=== PATIENT | male | born 1935 | race African-American/Black ===

== ENCOUNTER 2019-05-17 08:16 | Inpatient (IN) | payer MEDICARE, OTHER ==
--- NOTE | 2019-05-17 08:17 | ED ---
Complex/Multi-Sys Presentation - HPI Summary HPI Summary: 83-year-old male with a history of hypertension, diabetes, coronary artery disease is presenting with 1 day of fever, sore throat and productive cough. Patient is a resident at [facility], he has been self isolating, however his has been going to the lobby and has had interaction with other people. Patient reports a sore throat, phlegm like productive cough that began yesterday. No shortness of breath. Does report fatigue. Febrile to 103 with EMS. Got his flu shot this year. Denies abdominal pain, headaches, nausea, or vomiting. Medication list reviewed. Allergy list reviewed. - History Of Current Complaint Hx Obtained From: Patient Onset/Duration: Lasting Hours Timing: Constant Associated Signs And Symptoms: Positive: Other - Fatigue. Negative: Headache, SOB, Nausea, Vomiting, Abdominal Pain - Allergies/Home Medications Allergies/Adverse Reactions: Allergies Allergy/AdvReac Type Severity Reaction Status Date / Time CADEN Inhibitors Allergy Swelling Verified 05/17/19 08:38 Of Face,Lips,& Throat Sulfa (Sulfonamide Allergy Itching Verified 05/17/19 08:38 Antibiotics) Home Medications: Home Medications ARIPiprazole TAB* [Abilify TAB*] 2.5 mg PO DAILY 05/17/19 [History Confirmed ] Atorvastatin* [Lipitor*] 20 mg PO DAILY 05/17/19 [History Confirmed 05/17/19] Bisoprolol TAB* [Zebeta TAB*] 5 mg PO DAILY 05/17/19 [History Confirmed 05/17/19 ] Cetirizine* [ZyrTEC 10 MG TAB*] 10 mg PO DAILY 05/17/19 [History Confirmed 05/16] Furosemide TAB* [Lasix TAB*] 20 mg PO DAILY 05/17/19 [History Confirmed 05/17/19 ] Insulin Glargine,Hum.rec.anlog [Toujeo Max Solostar 300 units/ml 2 ml x 3 Pens] 20 units SUBCUT DAILY 05/17/19 [History Confirmed 05/17/19] Linaclotide [Linzess] 72 mcg PO DAILY 05/17/19 [History Confirmed 05/17/19] Losartan TAB* [Cozaar TAB*] 50 mg PO DAILY 05/17/19 [History Confirmed 05/17/19] Meloxicam(NF) [Mobic(NF)] 15 mg PO DAILY 05/17/19 [History Confirmed 05/17/19] Modafinil TAB* [Provigil TAB*] 50 mg PO DAILY 05/17/19 [History Confirmed ] Omeprazole CAP (NF) [Prilosec CAP* 20 MG] 20 mg PO DAILY 05/17/19 [History Confirmed 05/17/19] Selegiline 6 MG PATCH (NF) [Emsam PATCH (NF)] 1 patch TRANSDERM DAILY 05/17/19 [ History Confirmed 05/17/19] Spironolactone TAB* [Aldactone TAB*] 25 mg PO DAILY 05/17/19 [History Confirmed 05/17/19] hydrALAZINE TAB* [Apresoline TAB*] 10 mg PO TID 05/17/19 [History Confirmed 07/30] metFORMIN* [Glucophage 500 MG TAB *] 500 mg PO BID 05/17/19 [History Confirmed 05/17/19] PMH/Surg Hx/FS Hx/Imm Hx Endocrine/Hematology History: Reports: Hx Diabetes Cardiovascular History: Reports: Hx Hypertension, Other Cardiovascular Problems/ Disorders - "Heart problems" - Surgical History Surgical History: None - Family History Known Family History: Positive: Hypertension, Diabetes - Social History Lives: Assisted Living - [facility] Alcohol Use: None Hx Substance Use: No Substance Use Type: Reports: None Hx Tobacco Use: No Smoking Status (MU): Never Smoked Tobacco Review of Systems Positive: Fever, Fatigue Positive: Sore Throat Positive: Cough. Negative: Shortness Of Breath Negative: Abdominal Pain, Vomiting, Nausea Negative: Headache All Other Systems Reviewed And Are Negative: Yes Physical Exam - Summary Physical Exam Summary: Constitutional: Well-developed, Well-nourished, Alert. (-) Distressed Skin: Warm, Dry HENT: Normocephalic; Atraumatic Eyes: Conjunctiva normal Neck: Musculoskeletal ROM normal neck. (-) JVD, (-) Stridor, (-) Nuchal rigidity Cardio: Rhythm regular, tachycardic, Heart sounds normal; Intact distal pulses; Radial pulses are 2+ and symmetric. (-) Murmur Pulmonary/Chest wall: Effort normal. (-) Respiratory distress, (-) Wheezes, (-) Rales Abd: Soft, (-) tenderness, (-) Distension, (-) Guarding, (-) Rebound Musculoskeletal: (-) Edema Lymph: (-) Cervical adenopathy Neuro: Alert, Oriented x3 Psych: Mood and affect Normal Triage Information Reviewed: Yes Vital Signs Reviewed: Yes Procedures - Sedation Patient Received Moderate/Deep Sedation with Procedure: No Diagnostics - Laboratory Result Diagrams: 05/17/19 09:05 05/17/19 09:05 Lab Statement: Any lab studies that have been ordered have been reviewed, and results considered in the medical decision making process. - Radiology Chest x-ray Radiology Interpretation Completed By: Radiologist Summary of Radiographic Findings: Elevation of the right hemidiaphragm without radiographic evidence of acute cardiopulmonary disease. ED physician has reviewed this report. Complex Multi-Symp Course/Dx Course Of Treatment: 83 y/o male p/w fever, fatigue and productive cough x1 day. - VS SpO2 88-92% on RA, placed on 2 L O2. Febrile. given tylenol. Labs w leukocytosis. Flu negative. COVID pending. CXR w/o obvious PNA. Given age, O2 requirement, will admit to medicine. Given azithromycin and ceftriaxone - Diagnoses Provider Diagnoses: Fever, Hypoxia, Pneumonia - Physician Notifications Discussed Care Of Patient With: Sugey Subramanian Time Discussed With Above Provider: 09:54 Instructed by Provider To: Other - Discussed with Dr. Subramanian who accepts the patient for admission. Discharge ED - Sign-Out/Discharge Documenting (check all that apply): Patient Departure - Discharge Plan Condition: Stable Disposition: ADMITTED TO [facility] Referrals: Caitlyn Lance MD [Primary Care Provider] - - Billing Disposition and Condition Condition: STABLE Disposition: Admitted to [facility] - Attestation Statements Document Initiated by Scribe: Yes Documenting Scribe: Pia Malik Provider For Whom Gwendolyn is Documenting (Include Credential): Kyara Yoo MD Scribe Attestation: Pia Winston, scribed for Kyara Yoo MD on 05/17/19 at 1000. Scribe Documentation Reviewed: Yes Provider Attestation: The documentation as recorded by the Pia starks accurately reflects the service I personally performed and the decisions made by , Kyara Yoo MD Status of Scribe Document: Viewed
[2019-05-17] MEDS ORDERED: NS 0.9% 1000 ML** 1,000 ML IV ONE (08:47)
[2019-05-17] MEDS ORDERED: Acetaminophen TAB* 325 MG PO ONE (08:47)
[2019-05-17 09:17] LABS: Influenza A Molecular Negative (Negative); Influenza B Molecular Negative (Negative)
[2019-05-17 09:21] LABS: ABS Basophils 0.1 10^3/ul (0-0.2); ABS Lymphocytes 0.8 10^3/ul (1.0-4.8); ABS Monocytes 1.5 10^3/ul (0-0.8); ABS Neutrophils 8.9 10^3/ul (1.5-7.7); Eosinophil % 0.1 %; Hematocrit 35 % (42-52); Hemoglobin 11.8 g/dL (14.0-18.0); Lymphocyte % 7.4 %; Mean Corpuscular HGB Conc 33 g/dL (31-36); Mean Corpuscular Hemoglobin 33 pg (27-31); Mean Corpuscular Volume 98 fL (80-94); Mean Platelet Volume 9.6 fL (7.4-10.4); Platelet Count 138 10^3/uL (150-450); Red Blood Count 3.63 10^6 /uL (4.18-5.48); Red Cell Distribution Width 14 % (10-15); White Blood Count 11.3 10^3/uL (3.5-10.8)
[2019-05-17 09:38] LABS: Activated Partial Thrombo Time 27.1 seconds (26.0-38.0); Albumin 3.6 g/dL (3.2-5.2); Albumin/Globulin Ratio 0.9 (1-3); BUN/Creatinine Ratio 12.6 (8-20); Calcium 9.5 mg/dL (8.6-10.3); EGFR Non-African American 39.7 (>60); Globulin 3.8 g/dL (2-4); INR 1.19 (0.82-1.09); Potassium 3.9 mmol/L (3.5-5.0); Total Bilirubin 0.6 mg/dL (0.2-1.0); Total Protein 7.4 g/dL (6.4-8.9)
[2019-05-17 09:42] LABS: Troponin I 0.04 ng/mL (<0.03)
[2019-05-17] MEDS ORDERED: Azithromycin 500 mg/250 ml NS 500 MG/250 ML BAG IVPB ONE (09:51)
[2019-05-17] MEDS ORDERED: cefTRIAXone(*) 1 GM in NS 0.9% 50 ML* 50 ML IVPB SCH ×2 (10:00→11:05)
[2019-05-17] MEDS ORDERED: cefTRIAXone(*) 1 GM ADVAN/BAG ONE (10:11)
[2019-05-17] MEDS ORDERED: Al Hydrox/Mg Hydrox/Simet LIQ* 30 ML UDC PO PRN (10:58)
[2019-05-17] MEDS ORDERED: Ondansetron INJ* 2 MG/ML VIAL IV PRN (10:58)
[2019-05-17] MEDS ORDERED: Dextrose 50% Syringe 50 ML* 25 GM/50 ML SYRINGE IV PUSH PRN (11:02)
[2019-05-17] MEDS ORDERED: Oral Rinse (Biotene)(NF) 237 ML or 473 ML ORAL RINSE BTL MT PRN (11:03)
[2019-05-17] MEDS ORDERED: Albuterol HFA INHALER* 8 gm MDI INH PRN (11:46)
[2019-05-17 12:06] LABS: Rapid Strep Molecular Negative (Negative)
--- NOTE | 2019-05-17 13:53 | HP ---
CC: Dr. Lance* HISTORY AND PHYSICAL: DATE OF ADMISSION: 05/17/19 ATTENDING PHYSICIAN WHILE IN THE HOSPITAL: Dr. Sugey Subramanian* (dictated by NOA Peralta). PRIMARY CARE PROVIDER: Dr. Lance. CHIEF COMPLAINT: Increased generalized weakness and productive cough. HISTORY OF PRESENT ILLNESS: Derek Yanez is an 83-year-old black male with past medical history significant for congestive heart failure, GERD, depression , hypertension, KAREEM, diabetes mellitus type 2, chronic fatigue, prostate cancer , CKD, who presents to the emergency department today due to progressive worsening weakness and productive cough. The patient is very delayed in answering my questions today and I did obtain additional history from his daughter Karie Yanez. Karie tells me that his delay in answering questions is baseline for him. The patient tells me he has chronic cough but starting yesterday it became worse and is productive. He has chronic fatigue but his daughter tells me that yesterday he was very tired and was having generalized weakness that his needed help from one of the aides at [facility] to get him out of bed, which is not normal for him. Additionally, the patient has been feeling intermittently febrile. The patient tells me he has been having a cough but it is chronic; however, it is worse from his baseline and he is producing phlegm with the cough. He is having difficulty bring it up at times, he tells me. He has been feeling short of breath exerting himself, but he is unsure if this is chronic or not. He is unable to specific that to me. He denies abdominal pain, nausea, vomiting, diarrhea, chest pain, rhinorrhea. He has chronic nasal congestion which is unchanged. He started having a sore throat yesterday as well. The patient has newly transplanted here with his from [place] because his daughter lives in this area. They have been living in [place]. He has been isolating himself in his room ; however, his has been going in and out of the room to lobby of the building. He recently established care with Dr. Lance's office within the last few weeks since arriving here, and I do have a copy of the initial H and P from that visit which I gather much of my past medical history from. PAST MEDICAL HISTORY: 1. Congestive heart failure, no echocardiogram on record yet. 2. GERD. 3. Depression. 4. Hypertension. 5. KAREEM. 6. Diabetes mellitus type 2. 7. Chronic proximal muscle weakness. 8. Chronic fatigue. 9. Prostate cancer, status post radiation therapy. 10. CKD. PAST SURGICAL HISTORY: 1. Left TKA. 2. Spinal surgery due to herniated disk. HOME MEDICATIONS: 1. Abilify 2.5 mg p.o. daily. 2. Lipitor 20 mg p.o. daily. 3. Bisoprolol 5 mg p.o. daily. 4. Cetirizine 10 mg p.o. daily. 5. Lasix 20 mg p.o. daily. 6. Hydralazine 10 mg p.o. t.i.d. 7. Insulin glargine 20 units subcu daily. 8. Linzess 72 mcg p.o. daily. 9. Losartan 50 mg p.o. daily. 10. Meloxicam 15 mg p.o. daily. 11. Metformin 500 mg p.o. b.i.d. 12. Modafinil 50 mg p.o. daily. 13. Omeprazole 20 mg p.o. daily. 14. Selegiline 6 mg patch 1 patch transdermally daily. 15. Spironolactone 25 mg p.o. daily. ALLERGIES: Swelling of face, lips, and throat to CADEN INHIBITORS; itching to SULFA DRUGS. FAMILY HISTORY: Father of prostate cancer at age 95. Mother in her 80s of unknown causes. SOCIAL HISTORY: The patient has recently moved here from [place]. He is a retired tiling worker. He has 2 daughters. His daughter Karie is local. He and his are living at [facility]. He has never been a smoker. Drinks alcohol infrequently once every few weeks and denies illicit drug use. REVIEW OF SYSTEMS: An 11-point review of systems was completed. All pertinent positives and negatives are mentioned above in the HPI. All other systems are negative. PHYSICAL EXAMINATION GENERAL: An elderly black male, lying in hospital bed, appearing comfortable, in no acute distress. VITAL SIGNS: Temperature 101.1 Fahrenheit, pulse 107, respiratory rate 18, oxygen saturation 94% on 2 liters (89% on room air), blood pressure 164/100. HEENT: Head: Normocephalic, atraumatic. Eyes: PERRL. Sclerae anicteric. ENT: Mucous membranes minimally dry at the lips. Oropharynx is clear without erythema, exudate, or edema of the tonsils. Affect appears restricted. LUNGS: Clear to auscultation throughout, not using accessory muscles with respiration. CARDIAC: Regular rate and rhythm without murmurs, rubs, or gallops. ABDOMEN: Soft, nontender, nondistended without guarding. EXTREMITIES: No clubbing, cyanosis, or edema. NEURO: The patient is alert and oriented x3. Able to move all extremities and follow commands appropriately. SKIN: Warm, dry, and intact. PERTINENT STUDIES/LABORATORY DATA: White blood cell count 11.3, hemoglobin 11.8, hematocrit 35, platelet count 138. INR 1.19. Sodium 135, potassium 3.9, chloride 101, carbon dioxide 25, anion gap 9, BUN 21, creatinine 1.67, glucose 154, lactic acid 1.5, calcium 9.5. Troponin 0.04. LFTs are unremarkable. Influenza A and B are negative. Chest x-ray, per radiologist impression: Elevation of the right hemidiaphragm without radiographic evidence of acute cardiopulmonary disease. Upon my read, there does appear to be some bilateral interstitial edema and I do not have prior chest x-ray for comparison. EKG: Normal sinus rhythm, rate 95 beats per minute. No ST elevations or depression. There is T-wave flattening in leads III and aVF. ASSESSMENT AND PLAN: Derek Yanez is an 83-year-old black male with past medical history significant for congestive heart failure, gastroesophageal reflux disease, depression, hypertension, diabetes, chronic fatigue, and chronic kidney disease, who presents to the emergency department today due to shortness of breath, generalized weakness, sore throat, and productive cough. The patient will be admitted for observation for: 1. Sepsis. This patient meets systemic inflammatory response syndrome criteria with temperature of 101.1 and heart rate of 107. I suspect this is likely secondary to pneumonia as he appears to have clinical criteria for this; however, we will be testing him. I did swab him for rapid strep as well. Based on his history and some small changes to the chest x-ray, I will treat him as community acquired pneumonia. I will give him guaifenesin, p.r.n. Tylenol for fever, and continue ceftriaxone and azithromycin which he did receive a dose of in the emergency department. He is being tested for COVID-19 as well which is pending at this time. His chest x-ray is not overly concerning for consolidation, but his clinical picture does appear that way as he is febrile and has leukocytosis. We will be checking a urinalysis as well which is pending at this time to rule out other infectious etiologies. The patient has received 1 liter of normal saline in the emergency department and I will not be giving him a full fluid bolus. Given concern for possible COVID-19 , I would prefer that he not be fluid overloaded and he overall appears euvolemic. The patient's influenza A and B are negative. 2. Acute hypoxic respiratory failure. The patient was hypoxic with oxygen saturation 89% on room air in the emergency department. I suspect this is likely secondary to community acquired pneumonia versus COVID-19 which as previously discussed this test is pending. The patient is currently using 2 liters of oxygen via nasal cannula. If he does continue to have oxygen desaturations, it would likely be of benefit to start continuous pulse oximetry. 3. Elevated troponin. The patient has minimally elevated troponin to 0.04 without any EKG changes and he is not symptomatic of angina, so he does have some shortness of breath which is likely related to the etiologies as described above. I believe this is likely related to ischemic demand. 4. Diabetes mellitus type 2. I will be cutting the patient's home insulin in half and give him 20 units of glargine daily. I will order carbohydrate consistent diet, fingersticks a.c., and lispro sliding scale. 5. Hypertension. The patient was mainly hypertensive in the emergency department. We will continue to monitor this. We will continue with home losartan, hydralazine, and bisoprolol. If he continues to be hypertensive, likely he will benefit from starting amlodipine. 6. Depression. It appears that the patient has failed multiple SSRIs in the outpatient setting and he has been on Abilify and I will continue this. 7. Heart failure. Due to the patient's acute infection, I will be holding his Lasix and spironolactone. 8. Chronic kidney disease. It appears the patient's baseline creatinine is around 1.6 and appears he is baseline at this time as well. Continue losartan as previously mentioned. 9. Gastroesophageal reflux disease. Continue omeprazole. 10. FEN: The patient will have carbohydrate consistent diet. Electrolytes were without need for repletion and fluids as previously described above. 11. DVT prophylaxis: The patient has DVT risk score of 3, and I will order Lovenox. 12. Code Status: The patient is DNR but okay with intubation. His MOLST has been updated. This case has been reviewed by my attending physician, Dr. Sugey Subramanian, and she agrees with this plan of care. TIME SPENT: Approximately 50 minutes was spent on this admission, approximately half this time was spent at the bedside evaluating the patient, discussing the plan of care, obtaining corroborating history from his daughter. The patient is in agreement with this plan. NOA PERALTA [id number]/CPS #: [id number] MTDD
[2019-05-17] MEDS: hydrALAZINE TAB* 10 MG PO SCH ×2 (14:07→20:40)
[2019-05-17] MEDS: Insulin LISPRO* 1 UNITS UNIT SUBCUT SCH ×2 (14:07→17:19)
[2019-05-17] MEDS: Enoxaparin(*) 40 MG/0.4 ML SYR SUBCUT SCH (14:08)
[2019-05-17 14:23] LABS: C Reactive Protein 198.44 mg/L (<8.01)
[2019-05-17 15:10] LABS: Urine Appearance Clear; Urine Bilirubin Negative (Negative); Urine Blood Negative (Negative); Urine Color Yellow; Urine Glucose Negative (Negative); Urine Ketones Negative (Negative); Urine Nitrite Negative (Negative); Urine Protein 1+(30 mg/dL) (Negative); Urine Specific Gravity 1.019 (1.010-1.030); Urine Urobilinogen Negative (Negative)
[2019-05-17 15:17] LABS: Urine Bacteria Absent (Absent); Urine Red Blood Cell 1+(3-5/hpf) (Absent); Urine White Blood Cell Trace(0-5/hpf) (Absent)
[2019-05-17] MEDS: guaiFENesin ER TAB 600 MG PO SCH (20:40)
[2019-05-17] MEDS: Senna TAB 8.6 mg* TAB PO PRN (20:40)
[2019-05-17] MEDS: Acetaminophen TAB* 325 MG PO PRN (20:40)
[2019-05-18 07:30] LABS: BUN/Creatinine Ratio 12.1 (8-20); Calcium 9.2 mg/dL (8.6-10.3); EGFR African American 58.4 (>60); EGFR Non-African American 48.2 (>60); Potassium 3.8 mmol/L (3.5-5.0)
[2019-05-18 08:08] LABS: Hematocrit 36 % (42-52); Hemoglobin 11.9 g/dL (14.0-18.0); Mean Corpuscular HGB Conc 33 g/dL (31-36); Mean Corpuscular Hemoglobin 33 pg (27-31); Mean Corpuscular Volume 98 fL (80-94); Red Blood Count 3.63 10^6 /uL (4.18-5.48); Red Cell Distribution Width 15 % (10-15)
[2019-05-18] MEDS: Modafinil TAB* 100 MG PO SCH (08:17)
[2019-05-18] MEDS: ARIPiprazole TAB* 5 MG PO SCH (08:17)
[2019-05-18] MEDS: hydrALAZINE TAB* 10 MG PO SCH ×3 (08:18→22:12)
[2019-05-18] MEDS: guaiFENesin ER TAB 600 MG PO SCH ×2 (08:18→22:12)
[2019-05-18] MEDS: Pantoprazole TAB * 40 MG TAB PO SCH (08:18)
[2019-05-18] MEDS: Azithromycin TAB* 250 MG PO SCH (08:18)
[2019-05-18] MEDS: Bisoprolol TAB* 5 MG PO SCH (08:18)
[2019-05-18] MEDS: Losartan TAB* 25 MG PO SCH (08:18)
[2019-05-18] MEDS: Atorvastatin* 20 MG TAB PO SCH (08:19)
[2019-05-18] MEDS: Cetirizine* 10 MG TAB PO SCH (08:19)
[2019-05-18 08:30] LABS: Platelet Count 114 10^3/uL (150-450)
[2019-05-18] MEDS: Insulin LISPRO* 1 UNITS UNIT SUBCUT SCH ×3 (08:36→17:34)
[2019-05-18] MEDS: LINACLOTIDE 72 MCG PO SCH (08:37)
[2019-05-18] MEDS: Insulin GLARGINE(*) 1 UNITS UNIT SUBCUT SCH (08:37)
[2019-05-18 08:47] LABS: Eosinophil % 0.5 %; Lymphocyte % 5.8 %; White Blood Count 15.7 10^3/uL (3.5-10.8)
[2019-05-18] MEDS ORDERED: NS 0.9% 500 ML* 500 ML IV ONE (09:28)
--- NOTE | 2019-05-18 09:33 | PN ---
Subjective Date of Service: 05/18/19 Interval History: Patient tells me he feels better today. Feels less fatigue and less weakness. Ambulated with RN Mani to bathroom and did well. Cough is resolved today. Patient denies SOB, chest pain, abd pain. Prosser symptomatic fever this AM but temperature wnl. Objective Active Medications: Acetaminophen (Tylenol Tab*) 650 mg PO Q4H PRN PRN Reason: MILD PAIN or TEMP > 100.4 Last Admin: 05/17/19 20:40 Dose: 650 mg Al Hydrox/Mg Hydrox/Simethicone (Maalox Plus*) 30 ml PO Q6H PRN PRN Reason: INDIGESTION Albuterol (Ventolin Hfa Inhaler*) 2 puff INH Q2H PRN PRN Reason: SOB/WHEEZING Aripiprazole (Abilify Tab*) 2.[address] [facility] Last Admin: 05/18/19 08:17 Dose: 2.5 mg Atorvastatin Calcium (Lipitor*) [address] [facility] Last Admin: 05/18/19 08:19 Dose: 20 mg Azithromycin (Zithromax Tab*) [address] [facility] Last Admin: 05/18/19 08:18 Dose: 250 mg Bisoprolol Fumarate (Zebeta Tab*) [address] [facility] Last Admin: 05/18/19 08:18 Dose: 5 mg Cetirizine HCl (Zyrtec*) [address] [facility] Last Admin: 05/18/19 08:19 Dose: 10 mg Dextrose (D50w Syringe 50 Ml*) 12.5 gm IV PUSH .FOR FS < 60 - SS PRN PRN Reason: FS < 60 Enoxaparin Sodium (Lovenox(*)) [address] [facility] Last Admin: 05/17/19 14:08 Dose: 40 mg Guaifenesin (Mucinex*) 1,[address] [facility] Last Admin: 05/18/19 08:18 Dose: 1,200 mg Hydralazine HCl (Apresoline Tab*) [address] [facility] Last Admin: 05/18/19 08:18 Dose: 10 mg Ceftriaxone Sodium 1 gm/ (Sodium Chloride) 50 mls @ 100 mls/hr IVPB Q24H [facility] Sodium Chloride (Ns 0.9% 500 Ml*) 500 mls @ 1,000 mls/hr IV ONCE ONE Stop: 05/18/19 09:57 Insulin Glargine (Lantus(*)) [address] [facility] Last Admin: 05/18/19 08:37 Dose: 10 units Insulin Human Lispro (Humalog*) [address] [facility]; Protocol Last Admin: 05/18/19 08:36 Dose: 2 unit Losartan Potassium (Cozaar Tab*) [address] [facility] Last Admin: 05/18/19 08:18 Dose: 50 mg Modafinil (Provigil Tab*) [address] [facility] Last Admin: 05/18/19 08:17 Dose: 50 mg Multi-Ingredient Mouthwash/Gargle (Biotene Dry Mouth Oral Rinse(Nf)) 15 ml MT . DIRECTED PRN PRN Reason: dry mouth Non-Formulary Medication (Linaclotide [Linzess]) [address] [facility] Last Admin: 05/18/19 08:37 Dose: Not Given Ondansetron HCl (Zofran Inj*) 4 mg IV Q4H PRN PRN Reason: NAUSEA/VOMITING Pantoprazole Sodium (Protonix Tab*) [address] [facility] Last Admin: 05/18/19 08:18 Dose: 40 mg Selegiline HCl (Emsam Patch (Nf)) [address] [facility] Senna (Senokot 8.6 Mg Tab*) 1 tab PO BID PRN PRN Reason: CONSTIPATION Last Admin: 05/17/19 20:40 Dose: 1 tab Vital Signs - 8 hr 05/18/19 05/18/19 05/18/19 01:56 02:51 07:15 Temperature 97.8 F 99.5 F Pulse Rate 100 108 112 Respiratory 18 18 17 Rate Blood Pressure 147/88 185/90 (mmHg) O2 Sat by Pulse 98 97 95 Oximetry Oxygen Devices in Use Now: None Appearance: Elderly, black male, sitting upright in chair, appearing comfortable and in NAD Eyes: No Scleral Icterus, - - PERRL Ears/Nose/Mouth/Throat: Mucous Membranes Moist Neck: Trachea Midline Respiratory: Symmetrical Chest Expansion and Respiratory Effort, Clear to Auscultation Cardiovascular: NL Sounds; No Murmurs; No JVD, RRR Abdominal: - - abd soft/nontender/nondistended Extremities: No Edema, No Clubbing, Cyanosis Skin: No Rash or Ulcers Neurological: Alert and Oriented x 3, - - speech delayed but improved from yesterday Result Diagrams: 05/18/19 07:03 05/18/19 07:03 Microbiology and Other Data: Microbiology 05/17/19 09:05 Aerobic Blood Culture - Preliminary Blood Venous No Growth Day 1 Anaerobic Blood Culture - Preliminary No Growth Day 1 05/17/19 15:00 Legionella Urinary Antigen - Final Urine Negative Legionella Antigen Streptococcus pneumoniae Ag Screen - Final Negative S. pneumo Antigen Assess/Plan/Problems-Billing Assessment: 83 yo black male with PMHx DMT2, CHF, HTN, KAREEM, chronic fatigue, depression, chronic progressive muscle weakness presents with cough, worsened generalized weakness, and found to have hypoxia. - Patient Problems (1) Acute respiratory failure with hypoxia Current Visit: Yes Status: Acute Code(s): J96.01 - ACUTE RESPIRATORY FAILURE WITH HYPOXIA SNOMED Code(s): 65735692 Comment: -presented to ED with generalized weakness, worsened fatigue, and found to have hypoxia -appears to be related to community acquired pneumonia -continue ceftriaxone and azithromycin -WBC trended up today despite therapy -has been afebrile since yesterday PM -give additional fluids (2) Thrombocytopenia Current Visit: Yes Status: Acute Code(s): D69.6 - THROMBOCYTOPENIA, UNSPECIFIED SNOMED Code(s): 636873385 Comment: -likely reactive to infection (3) Diabetes mellitus type 2 in nonobese Current Visit: Yes Status: Acute Code(s): E11.9 - TYPE 2 DIABETES MELLITUS WITHOUT COMPLICATIONS SNOMED Code(s): 362968237 Comment: -continue lispro SS and glargine 10U daily -good BGs (4) Hypertension Current Visit: Yes Status: Acute Code(s): I10 - ESSENTIAL (PRIMARY) HYPERTENSION SNOMED Code(s): 77586323 Comment: -continue hydralazine and losartan (5) CKD (chronic kidney disease) Current Visit: Yes Status: Acute Code(s): N18.9 - CHRONIC KIDNEY DISEASE, UNSPECIFIED SNOMED Code(s): 535386538 Comment: -baseline is unclear as patient is new to [facility] and lack of PCP records from [place] (6) CHF (congestive heart failure) Current Visit: Yes Status: Acute Code(s): I50.9 - HEART FAILURE, UNSPECIFIED SNOMED Code(s): 87693422 Comment: -noted on PMHx from PCP, but is new to Dr. Lance from [place] and still obtaining records -unclear if systolic or diastolic -holding home lasix (7) Depression Current Visit: Yes Status: Acute Code(s): F32.9 - MAJOR DEPRESSIVE DISORDER , SINGLE EPISODE, UNSPECIFIED SNOMED Code(s): 87297638 Comment: -continue abilify, apparently patient has failed multiple other therapies (8) GERD (gastroesophageal reflux disease) Current Visit: Yes Status: Acute Code(s): K21.9 - GASTRO-ESOPHAGEAL REFLUX DISEASE WITHOUT ESOPHAGITIS SNOMED Code(s): 723784965 Comment: -continue PPI (9) DVT prophylaxis Current Visit: Yes Status: Acute Code(s): Z29.9 - ENCOUNTER FOR PROPHYLACTIC MEASURES, UNSPECIFIED SNOMED Code(s): 610969377 Comment: -lovenox (10) DNR (do not resuscitate) Current Visit: Yes Status: Acute Status and Disposition: remains inpatient pending medical improvement
[2019-05-18] MEDS ORDERED: cefTRIAXone(*) 1 GM in NS 0.9% 50 ML* 50 ML IVPB SCH (10:00)
[2019-05-18] MEDS: Acetaminophen TAB* 325 MG PO PRN ×2 (11:40→20:11)
[2019-05-18] MEDS: SELEGILINE TRANSDERM SCH (11:41)
[2019-05-18] MEDS: cefTRIAXone(*) 1 GM in NS 0.9% 50 ML* 50 ML IVPB SCH (11:41)
[2019-05-18] MEDS: Enoxaparin(*) 40 MG/0.4 ML SYR SUBCUT SCH (11:45)
[2019-05-19] MEDS: guaiFENesin ER TAB 600 MG PO SCH ×2 (08:00→20:38)
[2019-05-19] MEDS: Losartan TAB* 25 MG PO SCH (08:01)
[2019-05-19] MEDS: Bisoprolol TAB* 5 MG PO SCH (08:02)
[2019-05-19] MEDS: Modafinil TAB* 100 MG PO SCH (08:02)
[2019-05-19] MEDS: Cetirizine* 10 MG TAB PO SCH (08:03)
[2019-05-19] MEDS: Pantoprazole TAB * 40 MG TAB PO SCH (08:03)
[2019-05-19] MEDS: hydrALAZINE TAB* 10 MG PO SCH ×3 (08:03→20:39)
[2019-05-19] MEDS: Atorvastatin* 20 MG TAB PO SCH (08:04)
[2019-05-19] MEDS: Azithromycin TAB* 250 MG PO SCH (08:04)
[2019-05-19] MEDS: ARIPiprazole TAB* 5 MG PO SCH (08:05)
[2019-05-19] MEDS: Insulin LISPRO* 1 UNITS UNIT SUBCUT SCH ×3 (08:05→17:09)
[2019-05-19] MEDS: Insulin GLARGINE(*) 1 UNITS UNIT SUBCUT SCH (08:06)
[2019-05-19 09:33] LABS: Hematocrit 33 % (42-52); Hemoglobin 11.2 g/dL (14.0-18.0); Mean Corpuscular HGB Conc 34 g/dL (31-36); Mean Corpuscular Hemoglobin 33 pg (27-31); Mean Corpuscular Volume 97 fL (80-94); Mean Platelet Volume 9.3 fL (7.4-10.4); Platelet Count 154 10^3/uL (150-450); Red Blood Count 3.42 10^6 /uL (4.18-5.48); Red Cell Distribution Width 14 % (10-15); White Blood Count 15.4 10^3/uL (3.5-10.8)
[2019-05-19] MEDS: SELEGILINE TRANSDERM SCH (09:42)
[2019-05-19] MEDS: LINACLOTIDE 72 MCG PO SCH (09:42)
[2019-05-19 09:50] LABS: Calcium 8.8 mg/dL (8.6-10.3); Potassium 3.5 mmol/L (3.5-5.0)
[2019-05-19 09:55] LABS: ABS Basophils 0.1 10^3/ul (0-0.2); ABS Lymphocytes 0.5 10^3/ul (1.0-4.8); ABS Monocytes 1.5 10^3/ul (0-0.8); ABS Neutrophils 13.4 10^3/ul (1.5-7.7); C Reactive Protein 290.23 mg/L (<8.01); EGFR African American 57.9 (>60); EGFR Non-African American 47.8 (>60); Eosinophil % 0.2 %; Nucleated Red Blood Cells % 0.1
[2019-05-19] MEDS: Enoxaparin(*) 40 MG/0.4 ML SYR SUBCUT SCH (11:36)
[2019-05-19] MEDS: cefTRIAXone(*) 1 GM in NS 0.9% 50 ML* 50 ML IVPB SCH (11:36)
--- NOTE | 2019-05-19 14:24 | PN ---
Subjective Date of Service: 05/19/19 Interval History: Mr. Yanez is feeling a little better today. SOB is essentially resolved. He still has an occasional cough. Feeling generally weak, but he reports he has felt like this for "years." Denies CP. Nursing reports a small amount of clear sputum production, very weak. Family History: Unchanged from Admission Social History: Unchanged from Admission Past Medical History: Unchanged from Admission Objective Active Medications: Acetaminophen (Tylenol Tab*) 650 mg PO Q4H PRN MILD PAIN or TEMP > 100.4 Al Hydrox/Mg Hydrox/Simethicone (Maalox Plus*) 30 ml PO Q6H PRN INDIGESTION Albuterol (Ventolin Hfa Inhaler*) 2 puff INH Q2H PRN SOB/WHEEZING Aripiprazole (Abilify Tab*) 2.5 mg PO DAILY [facility] Atorvastatin Calcium (Lipitor*) 20 mg PO DAILY [facility] Azithromycin (Zithromax Tab*) 250 mg PO DAILY [facility] Bisoprolol Fumarate (Zebeta Tab*) 5 mg PO DAILY [facility] Cetirizine HCl (Zyrtec*) 10 mg PO DAILY [facility] Dextrose (D50w Syringe 50 Ml*) 12.5 gm IV PUSH .FOR FS < 60 - SS PRN FS < 60 Enoxaparin Sodium (Lovenox(*)) 40 mg SUBCUT Q24H [facility] Guaifenesin (Mucinex*) 1,200 mg PO BID [facility] Hydralazine HCl (Apresoline Tab*) 10 mg PO TID [facility] Ceftriaxone Sodium 1 gm/ (Sodium Chloride) 50 mls @ 100 mls/hr IVPB Q24H [facility] Insulin Glargine (Lantus(*)) 10 units SUBCUT Q24H [facility] Insulin Human Lispro (Humalog*) 0 units SUBCUT AC [facility]; Protocol Losartan Potassium (Cozaar Tab*) 50 mg PO DAILY [facility] Modafinil (Provigil Tab*) 50 mg PO DAILY [facility] Multi-Ingredient Mouthwash/Gargle (Biotene Dry Mouth Oral Rinse(Nf)) 15 ml MT . DIRECTED PRN dry mouth Non-Formulary Medication (Linaclotide [Linzess]) 72 mcg PO DAILY [facility] Ondansetron HCl (Zofran Inj*) 4 mg IV Q4H PRN NAUSEA/VOMITING Pantoprazole Sodium (Protonix Tab*) 40 mg PO DAILY [facility] Selegiline HCl (Emsam Patch (Nf)) 1 patch TRANSDERM DAILY [facility] Senna (Senokot 8.6 Mg Tab*) 1 tab PO BID PRN CONSTIPATION Vital Signs - 8 hr 05/19/19 05/19/19 05/19/19 07:15 08:00 11:15 Temperature 99.7 F 98.8 F Pulse Rate 119 101 Respiratory 16 16 20 Rate Blood Pressure 180/101 130/76 (mmHg) O2 Sat by Pulse 94 94 96 Oximetry 05/19/19 14:16 Temperature 98.5 F Pulse Rate 100 Respiratory 16 Rate Blood Pressure 152/71 (mmHg) O2 Sat by Pulse 94 Oximetry Oxygen Devices in Use Now: None Appearance: Elderly male lying in bed in NAD Ears/Nose/Mouth/Throat: Mucous Membranes Moist Neck: NL Appearance and Movements; NL JVP, Trachea Midline Respiratory: Symmetrical Chest Expansion and Respiratory Effort, Clear to Auscultation Cardiovascular: NL Sounds; No Murmurs; No JVD, RRR Abdominal: NL Sounds; No Tenderness; No Distention Extremities: No Edema Neurological: Alert and Oriented x 3 - Delayed speech Lines/Tubes/Other Access: Clean, Dry and Intact Peripheral IV Nutrition: Taking PO's Result Diagrams: 05/19/19 09:20 05/19/19 09:20 Assess/Plan/Problems-Billing Assessment: Mr. Yanez is an 83 yo M with PMH of DMT2, CHF, HTN, KAREEM, chronic fatigue, depression, chronic muscle weakness; presented with cough, worsened generalized weakness, and found to have hypoxia. - Patient Problems (1) Pneumonia Code(s): J18.9 - PNEUMONIA, UNSPECIFIED ORGANISM Comment: - Now sating well on RA - COVID negative - Strep pneumo and Legionella urine antigens negative - Continue azithromycin (day 3/5), ceftriaxone (day 3/7) (2) Weakness Code(s): R53.1 - WEAKNESS Comment: - Chronic proximal muscle weakness - Patient reports feeling weak, but at baseline - PT eval; ? need for [facility] (3) Acute respiratory failure with hypoxia Code(s): J96.01 - ACUTE RESPIRATORY FAILURE WITH HYPOXIA Comment: - Resolved - COVID negative - Secondary to community acquired pneumonia (4) Thrombocytopenia Code(s): D69.6 - THROMBOCYTOPENIA, UNSPECIFIED Comment: - Resolved - Likely reactive d/t infection (5) Diabetes mellitus type 2 in nonobese Code(s): E11.9 - TYPE 2 DIABETES MELLITUS WITHOUT COMPLICATIONS Comment: - Good glucose control - Continue Lispro SS, Lantus (6) Hypertension Code(s): I10 - ESSENTIAL (PRIMARY) HYPERTENSION Comment: - Slightly hypertensive - Continue hydralazine, losartan (7) CHF (congestive heart failure) Code(s): I50.9 - HEART FAILURE, UNSPECIFIED Comment: - Noted on PMHx from PCP, but is new to Dr. Lance from [place] and still awaiting records - Unclear if systolic or diastolic - Resume furosemide (8) CKD (chronic kidney disease) Code(s): N18.9 - CHRONIC KIDNEY DISEASE, UNSPECIFIED Comment: - Baseline is unclear as patient is new to [facility] and lack of PCP records from [place] (9) Depression Code(s): F32.9 - MAJOR DEPRESSIVE DISORDER, SINGLE EPISODE, UNSPECIFIED Comment: - Continue Abilify (10) GERD (gastroesophageal reflux disease) Code(s): K21.9 - GASTRO-ESOPHAGEAL REFLUX DISEASE WITHOUT ESOPHAGITIS Comment : - Continue pantoprazole (11) DVT prophylaxis Code(s): Z29.9 - ENCOUNTER FOR PROPHYLACTIC MEASURES, UNSPECIFIED Comment: - Lovenox (12) DNR (do not resuscitate) Comment: Status and Disposition: Inpatient. Anticipate d/c home vs [facility] pending PT eval. Attending: Mary Orellana
[2019-05-19] MEDS: Furosemide TAB* 20 MG PO SCH (15:12)
[2019-05-19] MEDS: Acetaminophen TAB* 325 MG PO PRN (20:39)
[2019-05-19] MEDS ORDERED: Metoprolol Tartrate IV* 1 MG/ML 5 ML VIAL IV PRN ×2 (21:41→21:48)
[2019-05-20 04:55] LABS: Hematocrit 33 % (42-52); Hemoglobin 11.4 g/dL (14.0-18.0); Mean Corpuscular HGB Conc 34 g/dL (31-36); Mean Corpuscular Hemoglobin 33 pg (27-31); Mean Corpuscular Volume 97 fL (80-94); Mean Platelet Volume 9.5 fL (7.4-10.4); Platelet Count 144 10^3/uL (150-450); Red Blood Count 3.42 10^6 /uL (4.18-5.48); Red Cell Distribution Width 15 % (10-15); White Blood Count 16.5 10^3/uL (3.5-10.8)
[2019-05-20 05:07] LABS: ABS Lymphocytes 0.9 10^3/ul (1.0-4.8); ABS Neutrophils 13.6 10^3/ul (1.5-7.7); Eosinophil % 0.3 %; Lymphocyte % 5.4 %; Nucleated Red Blood Cells % 0.1
[2019-05-20 05:20] LABS: CO2 Carbon Dioxide 18 mmol/L (22-32); Calcium 8.5 mg/dL (8.6-10.3); Chloride 102 mmol/L (101-111); Sodium 134 mmol/L (135-145)
[2019-05-20 05:24] LABS: Anion Gap 14 mmol/L (2-11)
[2019-05-20 05:25] LABS: BUN/Creatinine Ratio 14.9 (8-20); Blood Urea Nitrogen 23 mg/dL (6-24); EGFR African American 52.7 (>60); EGFR Non-African American 43.6 (>60); Glucose 130 mg/dL (70-100)
[2019-05-20] MEDS: SELEGILINE TRANSDERM SCH (07:45)
[2019-05-20] MEDS: LINACLOTIDE 72 MCG PO SCH (07:45)
[2019-05-20] MEDS: ARIPiprazole TAB* 5 MG PO SCH (08:16)
[2019-05-20] MEDS: Losartan TAB* 25 MG PO SCH (08:17)
[2019-05-20] MEDS: guaiFENesin ER TAB 600 MG PO SCH ×2 (08:17→20:10)
[2019-05-20] MEDS: Cetirizine* 10 MG TAB PO SCH (08:18)
[2019-05-20] MEDS: hydrALAZINE TAB* 10 MG PO SCH ×3 (08:18→20:12)
[2019-05-20] MEDS: Pantoprazole TAB * 40 MG TAB PO SCH (08:19)
[2019-05-20] MEDS: Azithromycin TAB* 250 MG PO SCH (08:19)
[2019-05-20] MEDS: Bisoprolol TAB* 5 MG PO SCH (08:19)
[2019-05-20] MEDS: Atorvastatin* 20 MG TAB PO SCH (08:19)
[2019-05-20] MEDS: Modafinil TAB* 100 MG PO SCH (08:20)
[2019-05-20] MEDS: Insulin GLARGINE(*) 1 UNITS UNIT SUBCUT SCH (08:21)
[2019-05-20] MEDS: Insulin LISPRO* 1 UNITS UNIT SUBCUT SCH ×3 (08:22→17:14)
[2019-05-20] MEDS: Furosemide TAB* 20 MG PO SCH (08:33)
[2019-05-20] MEDS: Enoxaparin(*) 40 MG/0.4 ML SYR SUBCUT SCH (11:49)
[2019-05-20] MEDS: cefTRIAXone(*) 1 GM in NS 0.9% 50 ML* 50 ML IVPB SCH (11:50)
--- NOTE | 2019-05-20 12:08 | PN ---
Subjective Date of Service: 05/20/19 Interval History: Mr. Yanez is feeling a bit better today. Still feeling very fatigued and weak, but this is normal for him. Just eating breakfast was difficult for him this morning because of fatigue. He was able to get up and sit in a chair. Denies CP , SOB. Still coughing a little, but improved. No concerns from nursing. Spoke with daughter who would like him to return to [place], but understands that he may need rehab prior to going back home. She does not think he has ever seen a keysmith. Family History: Unchanged from Admission Social History: Unchanged from Admission Past Medical History: Unchanged from Admission Objective Active Medications: Acetaminophen (Tylenol Tab*) 650 mg PO Q4H PRN MILD PAIN or TEMP > 100.4 Al Hydrox/Mg Hydrox/Simethicone (Maalox Plus*) 30 ml PO Q6H PRN INDIGESTION Albuterol (Ventolin Hfa Inhaler*) 2 puff INH Q2H PRN SOB/WHEEZING Aripiprazole (Abilify Tab*) 2.5 mg PO DAILY [facility] Atorvastatin Calcium (Lipitor*) 20 mg PO DAILY [facility] Azithromycin (Zithromax Tab*) 250 mg PO DAILY [facility] Bisoprolol Fumarate (Zebeta Tab*) 5 mg PO DAILY [facility] Cetirizine HCl (Zyrtec*) 10 mg PO DAILY [facility] Dextrose (D50w Syringe 50 Ml*) 12.5 gm IV PUSH .FOR FS < 60 - SS PRN FS < 60 Enoxaparin Sodium (Lovenox(*)) 40 mg SUBCUT Q24H [facility] Furosemide (Lasix Tab*) 20 mg PO DAILY [facility] Guaifenesin (Mucinex*) 1,200 mg PO BID [facility] Hydralazine HCl (Apresoline Tab*) 10 mg PO TID [facility] Ceftriaxone Sodium 1 gm/ (Sodium Chloride) 50 mls @ 100 mls/hr IVPB Q24H [facility] Insulin Glargine (Lantus(*)) 10 units SUBCUT Q24H [facility] Insulin Human Lispro (Humalog*) 0 units SUBCUT AC [facility]; Protocol Losartan Potassium (Cozaar Tab*) 50 mg PO DAILY [facility] Metoprolol Tartrate (Lopressor Iv*) 5 mg IV Q6H PRN HR>120 Modafinil (Provigil Tab*) 50 mg PO DAILY [facility] Multi-Ingredient Mouthwash/Gargle (Biotene Dry Mouth Oral Rinse(Nf)) 15 ml MT . DIRECTED PRN dry mouth Non-Formulary Medication (Linaclotide [Linzess]) 72 mcg PO DAILY [facility] Ondansetron HCl (Zofran Inj*) 4 mg IV Q4H PRN NAUSEA/VOMITING Pantoprazole Sodium (Protonix Tab*) 40 mg PO DAILY [facility] Selegiline HCl (Emsam Patch (Nf)) 1 patch TRANSDERM DAILY [facility] Senna (Senokot 8.6 Mg Tab*) 1 tab PO BID PRN CONSTIPATION Vital Signs - 8 hr 05/20/19 05/20/19 07:15 11:05 Temperature 100.5 F 99.0 F Pulse Rate 105 97 Respiratory 18 27 Rate Blood Pressure 156/83 111/65 (mmHg) O2 Sat by Pulse 93 91 Oximetry Oxygen Devices in Use Now: None Appearance: Elderly male sitting in chair in NAD Ears/Nose/Mouth/Throat: Mucous Membranes Moist Neck: NL Appearance and Movements; NL JVP, Trachea Midline Respiratory: Symmetrical Chest Expansion and Respiratory Effort, Clear to Auscultation Cardiovascular: NL Sounds; No Murmurs; No JVD, RRR Abdominal: NL Sounds; No Tenderness; No Distention Extremities: No Edema Neurological: Alert and Oriented x 3 - Delayed speech Lines/Tubes/Other Access: Clean, Dry and Intact Peripheral IV Nutrition: Taking PO's Result Diagrams: 05/20/19 04:42 05/20/19 09:20 Assess/Plan/Problems-Billing Assessment: Mr. Yanez is an 83 yo M with PMH of DMT2, CHF, HTN, KAREEM, chronic fatigue, depression, chronic muscle weakness; presented with cough, worsened generalized weakness, and found to have hypoxia. - Patient Problems (1) Pneumonia Code(s): J18.9 - PNEUMONIA, UNSPECIFIED ORGANISM Comment: - Now sating well on RA, but still having low-grade fevers - COVID negative - Strep pneumo and Legionella urine antigens negative - CT chest today showing RLL consolidation - Continue azithromycin (day 4/5), ceftriaxone (day 4/7) (2) Weakness Code(s): R53.1 - WEAKNESS Comment: - Chronic proximal muscle weakness - Patient reports feeling weak, but at baseline - Spoke with PCP (Natalio) who is concerned about rheumatological disease and requested rheum consult - Appreciate Rheumatology consult; Roxana will see the patient today - PT eval; will need [facility] (3) Acute respiratory failure with hypoxia Code(s): J96.01 - ACUTE RESPIRATORY FAILURE WITH HYPOXIA Comment: - Resolved - COVID negative - Secondary to community acquired pneumonia (4) Thrombocytopenia Code(s): D69.6 - THROMBOCYTOPENIA, UNSPECIFIED Comment: - Resolved - Likely reactive d/t infection (5) Diabetes mellitus type 2 in nonobese Code(s): E11.9 - TYPE 2 DIABETES MELLITUS WITHOUT COMPLICATIONS Comment: - Good glucose control - Continue Lispro SS, Lantus (6) Hypertension Code(s): I10 - ESSENTIAL (PRIMARY) HYPERTENSION Comment: - Intermittently hypertensive - Continue hydralazine, losartan (7) CHF (congestive heart failure) Code(s): I50.9 - HEART FAILURE, UNSPECIFIED Comment: - Noted on PMHx from PCP, but is new to Dr. Lance from [place] - Unclear if systolic or diastolic - Continue furosemide (8) CKD (chronic kidney disease) Code(s): N18.9 - CHRONIC KIDNEY DISEASE, UNSPECIFIED Comment: - Baseline is unclear as patient is new to [facility] and lack of PCP records from [place] (9) Depression Code(s): F32.9 - MAJOR DEPRESSIVE DISORDER, SINGLE EPISODE, UNSPECIFIED Comment: - Continue Abilify (10) GERD (gastroesophageal reflux disease) Code(s): K21.9 - GASTRO-ESOPHAGEAL REFLUX DISEASE WITHOUT ESOPHAGITIS Comment : - Continue pantoprazole (11) DVT prophylaxis Code(s): Z29.9 - ENCOUNTER FOR PROPHYLACTIC MEASURES, UNSPECIFIED Comment: - Lovenox (12) DNR (do not resuscitate) Comment: Status and Disposition: Inpatient. Anticipate d/c to [facility]. Attending: Shante Stringer
[2019-05-20 13:37] LABS: Erythrocyte Sed Rate 104 mm/Hr (0-19)
--- NOTE | 2019-05-20 17:15 | CONSULT ---
Consult Consult: Mr. Yanez is an 83 year old man with progressive muscular weakness, fatigue and markedly elevated inflammatory markers as well as a mild macrocytic anemia. He is currently being treated for community acquired pneumonia. We will check antibodies/ serologies for a possible connective tissue disorder. Check B12. Thyroid testing could be done once he clinically improves. Will continue to follow; thanks!
--- NOTE | 2019-05-20 18:41 | CONS ---
CONSULTATION REPORT: DATE OF CONSULT: 05/20/19 CONSULTING PROVIDER: Mae Clayton NP REASON FOR CONSULT: Evaluate for an inflammatory rheumatologic cause of an elevated C-reactive prote in as well as muscle weakness. HISTORY OF PRESENT ILLNESS: Mr. Yanez is an 83-year-old male who was seen by Dr. Lance, who discus sed his case briefly with me yesterday. He was admitted with progressive increased muscular weakness as well as a productive cough and was found to have pneumonia. A workup revealed an elevated C-reac tive protein and I have been asked to evaluate for a possible rheumatologic cause of his elevated C- reactive protein. Currently, he is being treated for a community-acquired pneumonia and his antibiot ic coverage has been recently broaden; however, he has also noted some progressive weakness to the po int that he is difficult to mobilize and participate in activities of daily living over the past coup le of weeks. His past medical history is also notable for congestive heart failure, depression, hype rtension, diabetes mellitus type 2, obstructive sleep apnea, and chronic fatigue. He also has a hist ory of prostate cancer and chronic renal insufficiency. His progressive weakness had worsened to the point that he was unable to ambulate and mobilize. He also has had some decline in terms of his ment al status and he has noted increased fatigue as well as generalized malaise to the point that it has been difficult for him to mobilize at [place] in terms of getting out of bed. He has had low-grade fevers and a chronic cough and he is producing phlegm with a cough. He has had difficulty bringing i t up and occasionally feeling short of breath. His symptoms have improved in this regard during his hospital stay. He denied GI symptoms, nausea, diarrhea, rhinorrhea, or chest wall pain. He has had chronic nasal congestion. He is originally from [place] and currently is at [facility]. PAST MEDICAL HISTORY: Includes: 1. Gastroesophageal reflux disease. 2. Depression. 3. Congestive heart failure. 4. Hypertension. 5. Obstructive sleep apnea. 6. Diabetes mellitus type 2. 7. Proximal muscle weakness chronically. 8. Fatigue. 9. History of prostate cancer, status post radiation therapy. 10. Chronic renal disease. PAST SURGICAL HISTORY: Includes: 1. Left total knee replacement. 2. Spinal surgery due to a herniated disk. MEDICATIONS: Home medications as an outpatient include: 1. Abilify 2.5 mg daily. 2. Lipitor 20 mg daily. 3. Bisoprolol 5 mg daily. 4. Cetirizine 10 mg daily. 5. Lasix 20 mg daily. 6. Hydralazine 10 mg t.i.d. 7. Insulin glargine 20 units subcu daily. 8. Linzess 72 mcg daily. 9. Losartan 50 mg daily. 10. Meloxicam 15 mg daily as needed for joint pain. 11. Metformin 500 mg b.i.d. 12. Modafinil 50 mg daily. 13. Omeprazole 20 mg daily. 14. Selegiline 6 mg patch, 1 patch transdermal daily. 15. Spironolactone 25 mg daily. ALLERGIES: Include CADEN INHIBITORS and SULFA DRUGS. FAMILY HISTORY: No immediate family history of an autoimmune condition. His father had prostate can cer as noted. SOCIAL HISTORY: He has moved here recently from [place]. He has 2 daughters. He is a retire d tiling worker. He has never been a smoker. Drinks alcohol infrequently, once every few weeks. No illicit drug use. REVIEW OF SYSTEMS: General: Has had progressive fatigue and weakness. HEENT: No ulcers in the elsy th or nose. Cardiac: Denies chest wall pain. Pulmonary: As noted above, mild cough. GI: Denies abdominal symptoms. No nausea or vomiting. Genitourinary: Denies blood in the urine or stool. Musc uloskeletal: Mild arthralgias. Notes that he has had a history of rotator cuff injury to both shoul ders in the past. He does feel moderately stiff in the morning, lasts several hours. All other 14-p oint review of systems were reviewed and were otherwise negative. PHYSICAL EXAM: He was an elderly male, in no acute distress. He was able to answer simple questions and was oriented to where he was. Mucous membranes were moist. Neck was supple. No adenopathy. N o JVP elevation. Trachea was midline. Pulmonary revealed symmetric chest expansion and respiratory e ffort, was otherwise clear. Cardiovascular exam revealed a regular rate and rhythm. Normal S1 and S 2. No murmurs, rubs, or gallops. No JVP elevation. Abdomen: Soft, nontender, nondistended. Positiv e bowel sounds. No organomegaly. Extremities: No edema. Neurologic: Delayed speech pattern, but w as able to answer simple questions and follow commands. He did appear fatigued. On motor strength, he had 4/5 strength in the upper and lower extremities, 5/5 in the shoulders and neck region, and no synovitis noted. 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 DIAGNOSTIC STUDIES/LAB DATA: He had a white count of 16.5, hemoglobin of 11.4, platelet count of 144 ,000, ESR of 104, and his sugar was 193 with a calcium of 8.5, creatinine of 1.54. He had a chest CT showing findings consistent with a right lower lobe pneumonia with consolidation. This is posterior to the dome of the liver. No pleural effusion. ASSESSMENT AND PLAN: Mr. Yanez is an elderly man with a history of diabetes and prostate cancer, wi th muscle weakness, fatigue, and a recent diagnosis of pneumonia. He has markedly elevated inflammat ory markers. Given his age as well as his proximal stiffness as well as subjective weakness, we coul d consider the possibility of polymyalgia rheumatica; however, the inflammatory markers are rather hi gh for this condition. He denies symptoms of giant cell arteritis. Specifically, he denies jaw teodora ication or jaw pain and denies headaches. He has had a mild decline in his vision over the last 6 mo nths, but no acute changes in his vision. Also consider the possibility of a paraneoplastic process. At this time, we should consider any underlying rheumatologic condition as well as myositis. We wi ll check a CPK as well as a connective tissue panel. It might be that he would benefit from a short course of corticosteroids; however, he does have pneumonia which is being treated and given the uncle ar nature and etiology of his symptoms, I will probably hold off on corticosteroids at this point in time until we have a more definitive idea of what is triggering his inflammation as well as his other symptoms of inflammation. I will continue to follow daily. [id number]/[facility] #: [id number]
[2019-05-20 19:02] LABS: Creatine Kinase 464 U/L (10-223)
[2019-05-20 19:12] LABS: Rheumatoid Factor 15 IU/mL (<15)
[2019-05-21] MEDS: Acetaminophen TAB* 325 MG PO PRN ×4 (00:58→20:20)
[2019-05-21 05:53] LABS: Hematocrit 31 % (42-52); Hemoglobin 10.4 g/dL (14.0-18.0); Mean Corpuscular HGB Conc 34 g/dL (31-36); Mean Corpuscular Hemoglobin 32 pg (27-31); Mean Corpuscular Volume 96 fL (80-94); Mean Platelet Volume 9.6 fL (7.4-10.4); Platelet Count 168 10^3/uL (150-450); Red Blood Count 3.22 10^6 /uL (4.18-5.48); Red Cell Distribution Width 15 % (10-15); White Blood Count 15.1 10^3/uL (3.5-10.8)
[2019-05-21 06:16] LABS: BUN/Creatinine Ratio 17.4 (8-20); Calcium 8.5 mg/dL (8.6-10.3); EGFR African American 52.3 (>60); EGFR Non-African American 43.2 (>60); Potassium 3.4 mmol/L (3.5-5.0)
[2019-05-21 06:18] LABS: ABS Lymphocytes 0.8 10^3/ul (1.0-4.8); ABS Monocytes 1.7 10^3/ul (0-0.8); ABS Neutrophils 12.6 10^3/ul (1.5-7.7); Nucleated Red Blood Cells % 0.1
[2019-05-21] MEDS: Losartan TAB* 25 MG PO SCH (09:17)
[2019-05-21] MEDS: Atorvastatin* 20 MG TAB PO SCH (09:17)
[2019-05-21] MEDS: Cetirizine* 10 MG TAB PO SCH (09:17)
[2019-05-21] MEDS: hydrALAZINE TAB* 10 MG PO SCH ×3 (09:17→20:20)
[2019-05-21] MEDS: Pantoprazole TAB * 40 MG TAB PO SCH (09:17)
[2019-05-21] MEDS: guaiFENesin ER TAB 600 MG PO SCH ×2 (09:18→20:20)
[2019-05-21] MEDS: Furosemide TAB* 20 MG PO SCH (09:18)
[2019-05-21] MEDS: ARIPiprazole TAB* 5 MG PO SCH (09:18)
[2019-05-21] MEDS: Insulin GLARGINE(*) 1 UNITS UNIT SUBCUT SCH (09:19)
[2019-05-21] MEDS: Insulin LISPRO* 1 UNITS UNIT SUBCUT SCH ×3 (09:19→17:07)
[2019-05-21] MEDS: Bisoprolol TAB* 5 MG PO SCH (09:19)
[2019-05-21] MEDS: Azithromycin TAB* 250 MG PO SCH (09:19)
[2019-05-21] MEDS: SELEGILINE TRANSDERM SCH (09:20)
[2019-05-21] MEDS: Modafinil TAB* 100 MG PO SCH (09:20)
[2019-05-21] MEDS: LINACLOTIDE 72 MCG PO SCH (09:20)
[2019-05-21] MEDS ORDERED: Potassium Chlor TAB* 20 MEQ TAB.ER PO ONE (10:34)
[2019-05-21] MEDS: cefTRIAXone(*) 1 GM in NS 0.9% 50 ML* 50 ML IVPB SCH ×2 (11:31→15:36)
[2019-05-21] MEDS: Enoxaparin(*) 40 MG/0.4 ML SYR SUBCUT SCH (11:50)
--- NOTE | 2019-05-21 15:44 | PN ---
Medicine Progress Note - Date of Service Date of Service: 05/21/19 - chief Complaint: elevated inflammatory markers, musccular weakness/ stiffness/ elevated CK - Subjective Subjective: Mr. Parnell generally feels better today but he is still restricted in terms of mobilizing as he has had right hip pain. Right knee aches to a lesser extent. His hands and feet feel well. Denied coughing or shortness of breath - Objective Objective: Vital Signs 05/20/19 05/20/19 05/21/19 19:53 20:00 00:05 Temperature 99.1 F 99.9 F Pulse Rate 98 101 Respiratory 24 24 20 Rate Blood Pressure 149/83 178/84 (mmHg) O2 Sat by Pulse 96 96 98 Oximetry 05/21/19 05/21/19 05/21/19 01:03 04:23 08:00 Temperature 98.5 F Pulse Rate 96 Respiratory 20 18 Rate Blood Pressure 188/88 138/80 (mmHg) O2 Sat by Pulse 96 Oximetry 05/21/19 05/21/19 08:10 12:20 Temperature 99 F 98.5 F Pulse Rate 103 82 Respiratory 16 20 Rate Blood Pressure 152/77 131/61 (mmHg) O2 Sat by Pulse 96 95 Oximetry Current Medications Acetaminophen (Tylenol Tab*) 650 mg PO Q4H PRN PRN Reason: MILD PAIN or TEMP > 100.4 Last Admin: 05/21/19 09:17 Dose: 650 mg Al Hydrox/Mg Hydrox/Simethicone (Maalox Plus*) 30 ml PO Q6H PRN PRN Reason: INDIGESTION Albuterol (Ventolin Hfa Inhaler*) 2 puff INH Q2H PRN PRN Reason: SOB/WHEEZING Aripiprazole (Abilify Tab*) 2.5 mg PO DAILY [facility] Last Admin: 05/21/19 09:18 Dose: 2.5 mg Atorvastatin Calcium (Lipitor*) 20 mg PO DAILY [facility] Last Admin: 05/21/19 09:17 Dose: 20 mg Bisoprolol Fumarate (Zebeta Tab*) 5 mg PO DAILY [facility] Last Admin: 05/21/19 09:19 Dose: 5 mg Cefdinir (Cefdinir Cap*) 300 mg PO BID [facility] Stop: 05/24/19 09:01 Cetirizine HCl (Zyrtec*) 10 mg PO DAILY [facility] Last Admin: 05/21/19 09:17 Dose: 10 mg Dextrose (D50w Syringe 50 Ml*) 12.5 gm IV PUSH .FOR FS < 60 - SS PRN PRN Reason: FS < 60 Enoxaparin Sodium (Lovenox(*)) 40 mg SUBCUT Q24H [facility] Last Admin: 05/21/19 11:50 Dose: 40 mg Furosemide (Lasix Tab*) 20 mg PO DAILY [facility] Last Admin: 05/21/19 09:18 Dose: 20 mg Guaifenesin (Mucinex*) 1,200 mg PO BID [facility] Last Admin: 05/21/19 09:18 Dose: 1,200 mg Hydralazine HCl (Apresoline Tab*) 10 mg PO TID [facility] Last Admin: 05/21/19 14:24 Dose: 10 mg Insulin Glargine (Lantus(*)) 10 units SUBCUT Q24H [facility] Last Admin: 05/21/19 09:19 Dose: 10 units Insulin Human Lispro (Humalog*) 0 units SUBCUT [facility]; Protocol Last Admin: 05/21/19 12:52 Dose: 2 unit Losartan Potassium (Cozaar Tab*) 50 mg PO DAILY [facility] Last Admin: 05/21/19 09:17 Dose: 50 mg Metoprolol Tartrate (Lopressor Iv*) 5 mg IV Q6H PRN PRN Reason: HR>120 Modafinil (Provigil Tab*) 50 mg PO DAILY [facility] Last Admin: 05/21/19 09:20 Dose: 50 mg Multi-Ingredient Mouthwash/Gargle (Biotene Dry Mouth Oral Rinse(Nf)) 15 ml MT . DIRECTED PRN PRN Reason: dry mouth Non-Formulary Medication (Linaclotide [Linzess]) 72 mcg PO DAILY [facility] Last Admin: 05/21/19 09:20 Dose: Not Given Ondansetron HCl (Zofran Inj*) 4 mg IV Q4H PRN PRN Reason: NAUSEA/VOMITING Pantoprazole Sodium (Protonix Tab*) 40 mg PO DAILY [facility] Last Admin: 05/21/19 09:17 Dose: 40 mg Selegiline HCl (Emsam Patch (Nf)) 1 patch TRANSDERM DAILY [facility] Last Admin: 05/21/19 09:20 Dose: Not Given Senna (Senokot 8.6 Mg Tab*) 1 tab PO BID PRN PRN Reason: CONSTIPATION Last Admin: 05/17/19 20:40 Dose: 1 tab Intake & Output 05/19/19 05/20/19 05/21/19 05/22/19 06:59 06:59 06:59 06:59 Intake Total 1335 319 30 480 Output Total 450 0 475 Balance 885 319 30 5 Intake: IV Fluids 480 79 30 Ceftriaxone 59 NS (0.9%) 20 30 IVPB 55 Oral 800 240 0 480 Output: Urine 450 0 475 Other: Estimated Void Large Large # Bowel Movements 1 1 0 Estimated Stool Amount Medium Small # Voids 3 1 2 ADLs: Meal Record Start: 05/17/19 12: 21 Freq: DAILY@0900,1400,1800 Status: Active Protocol: Created 05/17/19 12:21 System (Rec: 05/17/19 12:21 System MED-C05) Document 05/17/19 18:00 [id number] (Rec: 05/17/19 18:22 [id number] MED-C05) Document 05/18/19 09:00 [id number] (Rec: 05/18/19 14:54 [id number] MED-C05) Document 05/18/19 14:00 [id number] (Rec: 05/18/19 17:32 [id number] TELE-M12) Document 05/18/19 18:00 [id number] (Rec: 05/18/19 20:14 [id number] TELE-M12) Document 05/19/19 09:00 [id number] (Rec: 05/19/19 11:18 [id number] TELE-M12) Document 05/19/19 13:37 [id number] (Rec: 05/19/19 13:37 [id number] MED-C12) Document 05/19/19 18:00 [id number] (Rec: 05/19/19 20:49 [id number] TELE-C10) Document 05/21/19 13:59 [id number] (Rec: 05/21/19 13:59 [id number] TELE-M22) Document 05/21/19 14:00 [id number] (Rec: 05/21/19 14:17 [id number] TELE-C09) Intake and Output Start: 05/17/19 08: 36 Freq: Status: Complete Protocol: Created 05/17/19 08:36 System (Rec: 04/06/20 08:36 System [id number]) Intake and Output Start: 05/17/19 12: 21 Freq: DAILY@0600,1400,2200 Status: Active Protocol: Created 05/17/19 12:21 System (Rec: 05/17/19 12:21 System MED-C05) Document 05/18/19 05:28 [id number] (Rec: 05/18/19 05:28 [id number] MED-M04) Document 05/18/19 14:00 [id number] (Rec: 05/18/19 14:55 [id number] MED-C05) Document 05/18/19 22:00 [id number] (Rec: 05/18/19 22:35 [id number] TELE-M12) Document 05/19/19 03:41 [id number] (Rec: 05/19/19 03:41 [id number] TELE-M12) Document 05/19/19 22:00 [id number] (Rec: 05/19/19 22:13 [id number] TELE-C10) Document 05/20/19 06:34 [id number] (Rec: 05/20/19 06:40 [id number] TELE-C10) Document 05/21/19 06:00 [id number] (Rec: 05/21/19 06:44 [id number] TELE-C09) Document 05/21/19 14:00 [id number] (Rec: 05/21/19 14:18 [id number] TELE-C09) Last Finger Stick Glucose Documented by Nursing: General:NAD sitting up Lungs:Clear to auscultation bilaterall with decreased breath sounds bases Cardiovascular:RRR normal s1 and s2 present Abdomen:Soft NT ND no masses Extremities:No edema; mild OA knee varus deformities Right hip is restricted in external/ internal ROM No synovitis but there is hip restriction; shoulders with improved ROM Neuro:Non focal. Seems more alert. Able to respond to simple questions Motor 4/5 shoulder biceps and triceps and 5/5 quads - Labs Labs: Laboratory Results - last 24 hr 05/20/19 05/20/19 05/21/19 16:40 18:40 05:20 WBC 15.1 H RBC 3.22 L Hgb 10.4 L Hct 31 L MCV 96 H MCH 32 H MCHC 34 RDW 15 Plt Count 168 MPV 9.6 Neut % (Auto) 83.6 Lymph % (Auto) 5.0 [place] % (Auto) 11.2 Eos % (Auto) 0.0 Baso % (Auto) 0.2 Absolute Neuts (auto) 12.6 H Absolute Lymphs (auto) 0.8 L Absolute Monos (auto) 1.7 H Absolute Eos (auto) 0.0 Absolute Basos (auto) 0.0 Absolute Nucleated RBC 0.0 Nucleated RBC % 0.1 Sodium Potassium Chloride Carbon Dioxide Anion Gap BUN Creatinine Est GFR ( Amer) Est GFR (Non-Af Amer) BUN/Creatinine Ratio Glucose POC Glucose (mg/dL) 193 H Calcium Total Creatine Kinase 464 H Vitamin B12 1077 H Rheumatoid Factor 15 H 05/21/19 05/21/19 05:20 08:55 WBC RBC Hgb Hct MCV MCH MCHC RDW Plt Count MPV Neut % (Auto) Lymph % (Auto) [place] % (Auto) Eos % (Auto) Baso % (Auto) Absolute Neuts (auto) Absolute Lymphs (auto) Absolute Monos (auto) Absolute Eos (auto) Absolute Basos (auto) Absolute Nucleated RBC Nucleated RBC % Sodium 133 L Potassium 3.4 L Chloride 101 Carbon Dioxide 19 L Anion Gap 13 H BUN 27 H Creatinine 1.55 H Est GFR ( Amer) 52.3 Est GFR (Non-Af Amer) 43.2 BUN/Creatinine Ratio 17.4 Glucose 184 H POC Glucose (mg/dL) 184 H Calcium 8.5 L Total Creatine Kinase Vitamin B12 Rheumatoid Factor - Assessment Assessment: JULIA PARNELL is a 83 year old M. Patient's diagnosis is HYPOXIA, PRODUCTIVE COUGH, FEVER. Mr Parnell also has markedly elevated inflammatory markers in the setting of muscular stiffness and subjective muscular weakness. Serologies are notable for a low titer RF; however he does not have peripheral synovitis in his small joint so I do not think that he has RA clinically. He also has a moderately elevated CK; it is not in the range of polymyositis, but he does have ongoing subjective muscular weakness. 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 Would probably avoid steroids at this point given his current treatment for pneumonia Right hip pain: may be from OA; consider hip xray Bedside PT - Plan Plan: Per above; continue supportive care
--- NOTE | 2019-05-21 16:34 | PN ---
Subjective Date of Service: 05/21/19 Interval History: Mr. Yanez is feeling a little better today. Energy level is slightly up from the last few days. He was seen sitting in a chair eating breakfast this morning. Denies CP, SOB, cough. No concerns from nursing, though we did lose IV access. Spoke with and daughter. They are refusing rehab and are opting to have patient return to [place] with private care. They will work on setting this up. Family History: Unchanged from Admission Social History: Unchanged from Admission Past Medical History: Unchanged from Admission Objective Active Medications: Acetaminophen (Tylenol Tab*) 650 mg PO Q4H PRN MILD PAIN or TEMP > 100.4 Al Hydrox/Mg Hydrox/Simethicone (Maalox Plus*) 30 ml PO Q6H PRN INDIGESTION Albuterol (Ventolin Hfa Inhaler*) 2 puff INH Q2H PRN SOB/WHEEZING Aripiprazole (Abilify Tab*) 2.5 mg PO DAILY [facility] Atorvastatin Calcium (Lipitor*) 20 mg PO DAILY [facility] Bisoprolol Fumarate (Zebeta Tab*) 5 mg PO DAILY [facility] Cefdinir (Cefdinir Cap*) 300 mg PO BID [facility] Cetirizine HCl (Zyrtec*) 10 mg PO DAILY [facility] Dextrose (D50w Syringe 50 Ml*) 12.5 gm IV PUSH .FOR FS < 60 - SS PRN FS < 60 Enoxaparin Sodium (Lovenox(*)) 40 mg SUBCUT Q24H [facility] Furosemide (Lasix Tab*) 20 mg PO DAILY [facility] Guaifenesin (Mucinex*) 1,200 mg PO BID [facility] Hydralazine HCl (Apresoline Tab*) 10 mg PO TID [facility] Insulin Glargine (Lantus(*)) 10 units SUBCUT Q24H [facility] Insulin Human Lispro (Humalog*) 0 units SUBCUT [facility]; Protocol Losartan Potassium (Cozaar Tab*) 50 mg PO DAILY [facility] Metoprolol Tartrate (Lopressor Iv*) 5 mg IV Q6H PRN HR>120 Modafinil (Provigil Tab*) 50 mg PO DAILY [facility] Multi-Ingredient Mouthwash/Gargle (Biotene Dry Mouth Oral Rinse(Nf)) 15 ml MT . DIRECTED PRN dry mouth Non-Formulary Medication (Linaclotide [Linzess]) 72 mcg PO DAILY [facility] Ondansetron HCl (Zofran Inj*) 4 mg IV Q4H PRN NAUSEA/VOMITING Pantoprazole Sodium (Protonix Tab*) 40 mg PO DAILY [facility] Selegiline HCl (Emsam Patch (Nf)) 1 patch TRANSDERM DAILY [facility] Senna (Senokot 8.6 Mg Tab*) 1 tab PO BID PRN CONSTIPATION Vital Signs - 8 hr 05/21/19 05/21/19 12:20 16:18 Temperature 98.5 F 98.2 F Pulse Rate 82 88 Respiratory 20 20 Rate Blood Pressure 131/61 141/76 (mmHg) O2 Sat by Pulse 95 96 Oximetry Oxygen Devices in Use Now: None Appearance: Elderly male sitting in chair in NAD Ears/Nose/Mouth/Throat: Mucous Membranes Moist Neck: NL Appearance and Movements; NL JVP, Trachea Midline Respiratory: Symmetrical Chest Expansion and Respiratory Effort, Clear to Auscultation Cardiovascular: NL Sounds; No Murmurs; No JVD, RRR Extremities: No Edema Neurological: Alert and Oriented x 3 - Delayed speech Lines/Tubes/Other Access: Clean, Dry and Intact Peripheral IV Nutrition: Taking PO's Result Diagrams: 05/21/19 05:20 05/21/19 05:20 Assess/Plan/Problems-Billing Assessment: Mr. Yanez is an 83 yo M with PMH of DMT2, CHF, HTN, KAREEM, chronic fatigue, depression, chronic muscle weakness; presented with cough, worsened generalized weakness, and found to have hypoxia. - Patient Problems (1) Pneumonia Code(s): J18.9 - PNEUMONIA, UNSPECIFIED ORGANISM Comment: - Now sating well on RA, but still having low-grade fevers - COVID negative - Strep pneumo and Legionella urine antigens negative - CT chest 05/19 showing RLL consolidation - Continue azithromycin (day 5/5), ceftriaxone (day 5/7) (2) Weakness Code(s): R53.1 - WEAKNESS Comment: - Chronic proximal muscle weakness - Patient reports feeling weak, but at baseline - Spoke with PCP (Natalio) who is concerned about rheumatological disease and requested rheum consult - Appreciate Rheumatology consult - PT recommeding [facility] but family declining and arranging for private care at [place] (3) Acute respiratory failure with hypoxia Code(s): J96.01 - ACUTE RESPIRATORY FAILURE WITH HYPOXIA Comment: - Resolved - COVID negative - Secondary to community acquired pneumonia (4) Thrombocytopenia Code(s): D69.6 - THROMBOCYTOPENIA, UNSPECIFIED Comment: - Resolved - Likely reactive d/t infection (5) Diabetes mellitus type 2 in nonobese Code(s): E11.9 - TYPE 2 DIABETES MELLITUS WITHOUT COMPLICATIONS Comment: - Good glucose control - Continue Lispro SS, Lantus (6) Hypertension Code(s): I10 - ESSENTIAL (PRIMARY) HYPERTENSION Comment: - Intermittently hypertensive - Continue hydralazine, losartan (7) CHF (congestive heart failure) Code(s): I50.9 - HEART FAILURE, UNSPECIFIED Comment: - Noted on PMHx from PCP, but is new to Dr. Lance from [place] - Unclear if systolic or diastolic - Continue furosemide (8) CKD (chronic kidney disease) Code(s): N18.9 - CHRONIC KIDNEY DISEASE, UNSPECIFIED Comment: - Baseline is unclear as patient is new to [facility] and lack of PCP records from [place] (9) Depression Code(s): F32.9 - MAJOR DEPRESSIVE DISORDER, SINGLE EPISODE, UNSPECIFIED Comment: - Continue Abilify (10) GERD (gastroesophageal reflux disease) Code(s): K21.9 - GASTRO-ESOPHAGEAL REFLUX DISEASE WITHOUT ESOPHAGITIS Comment : - Continue pantoprazole (11) DVT prophylaxis Code(s): Z29.9 - ENCOUNTER FOR PROPHYLACTIC MEASURES, UNSPECIFIED Comment: - Lovenox (12) DNR (do not resuscitate) Comment: Status and Disposition: Inpatient. Anticipate d/c back to [place] when private care has been set up by family. Attending: Shante Stringer
[2019-05-21] MEDS: Cefdinir cap* 300 MG CAP PO SCH (20:20)
[2019-05-22 05:40] LABS: ABS Eosinophils 0.2 10^3/ul (0-0.6); ABS Lymphocytes 1.1 10^3/ul (1.0-4.8); ABS Monocytes 1.4 10^3/ul (0-0.8); ABS Neutrophils 9.6 10^3/ul (1.5-7.7); Eosinophil % 1.3 %; Hematocrit 31 % (42-52); Hemoglobin 10.2 g/dL (14.0-18.0); Lymphocyte % 8.9 %; Mean Corpuscular HGB Conc 33 g/dL (31-36); Mean Corpuscular Hemoglobin 33 pg (27-31); Mean Corpuscular Volume 97 fL (80-94); Mean Platelet Volume 9.9 fL (7.4-10.4); Nucleated Red Blood Cells % 0.1; Platelet Count 196 10^3/uL (150-450); Red Blood Count 3.13 10^6 /uL (4.18-5.48); Red Cell Distribution Width 15 % (10-15); White Blood Count 12.3 10^3/uL (3.5-10.8)
[2019-05-22 08:52] LABS: Urine Appearance Clear; Urine Bilirubin Negative (Negative); Urine Blood 1+ (Negative); Urine Color Yellow; Urine Glucose Negative (Negative); Urine Ketones Trace (Negative); Urine Nitrite Negative (Negative); Urine Protein 2+(100 mg/dL) (Negative); Urine Specific Gravity 1.024 (1.010-1.030); Urine Urobilinogen Negative (Negative)
[2019-05-22 08:53] LABS: Urine Bacteria Absent (Absent); Urine Red Blood Cell 3+(>10/hpf) (Absent); Urine Squamous Epithelial Cell Present (Absent); Urine White Blood Cell Trace(0-5/hpf) (Absent)
[2019-05-22] MEDS: ARIPiprazole TAB* 5 MG PO SCH (09:11)
[2019-05-22] MEDS: Furosemide TAB* 20 MG PO SCH (09:12)
[2019-05-22] MEDS: hydrALAZINE TAB* 10 MG PO SCH ×3 (09:12→21:17)
[2019-05-22] MEDS: Cetirizine* 10 MG TAB PO SCH (09:13)
[2019-05-22] MEDS: Atorvastatin* 20 MG TAB PO SCH (09:14)
[2019-05-22] MEDS: Losartan TAB* 25 MG PO SCH (09:14)
[2019-05-22] MEDS: Pantoprazole TAB * 40 MG TAB PO SCH (09:15)
[2019-05-22] MEDS: Cefdinir cap* 300 MG CAP PO SCH ×2 (09:16→21:18)
[2019-05-22] MEDS: Bisoprolol TAB* 5 MG PO SCH (09:16)
[2019-05-22] MEDS: Modafinil TAB* 100 MG PO SCH (09:17)
[2019-05-22] MEDS: Acetaminophen TAB* 325 MG PO PRN (09:18)
[2019-05-22] MEDS: guaiFENesin ER TAB 600 MG PO SCH ×2 (09:19→21:18)
[2019-05-22] MEDS: SELEGILINE TRANSDERM SCH (09:21)
[2019-05-22] MEDS: LINACLOTIDE 72 MCG PO SCH (09:21)
[2019-05-22] MEDS: Insulin LISPRO* 1 UNITS UNIT SUBCUT SCH ×3 (09:22→17:25)
[2019-05-22] MEDS: Insulin GLARGINE(*) 1 UNITS UNIT SUBCUT SCH (09:22)
[2019-05-22] MEDS: Enoxaparin(*) 40 MG/0.4 ML SYR SUBCUT SCH (12:26)
--- NOTE | 2019-05-22 14:36 | PN ---
Subjective Date of Service: 05/22/19 Interval History: Mr. Yanez is feeling well today. He has a little more energy this morning after being awake for a few hours. Has not yet been out of bed on exam. Denies CP, SOB, cough. No concerns from nursing. Family History: Unchanged from Admission Social History: Unchanged from Admission Past Medical History: Unchanged from Admission Objective Active Medications: Acetaminophen (Tylenol Tab*) 650 mg PO Q4H PRN MILD PAIN or TEMP > 100.4 Al Hydrox/Mg Hydrox/Simethicone (Maalox Plus*) 30 ml PO Q6H PRN INDIGESTION Albuterol (Ventolin Hfa Inhaler*) 2 puff INH Q2H PRN SOB/WHEEZING Aripiprazole (Abilify Tab*) 2.5 mg PO DAILY [facility] Atorvastatin Calcium (Lipitor*) 20 mg PO DAILY [facility] Bisoprolol Fumarate (Zebeta Tab*) 5 mg PO DAILY [facility] Cefdinir (Cefdinir Cap*) 300 mg PO BID [facility] Cetirizine HCl (Zyrtec*) 10 mg PO DAILY [facility] Dextrose (D50w Syringe 50 Ml*) 12.5 gm IV PUSH .FOR FS < 60 - SS PRN FS < 60 Enoxaparin Sodium (Lovenox(*)) 40 mg SUBCUT Q24H [facility] Furosemide (Lasix Tab*) 20 mg PO DAILY [facility] Guaifenesin (Mucinex*) 1,200 mg PO BID [facility] Hydralazine HCl (Apresoline Tab*) 10 mg PO TID [facility] Insulin Glargine (Lantus(*)) 10 units SUBCUT Q24H [facility] Insulin Human Lispro (Humalog*) 0 units SUBCUT [facility]; Protocol Losartan Potassium (Cozaar Tab*) 50 mg PO DAILY [facility] Metoprolol Tartrate (Lopressor Iv*) 5 mg IV Q6H PRN HR>120 Modafinil (Provigil Tab*) 50 mg PO DAILY [facility] Multi-Ingredient Mouthwash/Gargle (Biotene Dry Mouth Oral Rinse(Nf)) 15 ml MT . DIRECTED PRN dry mouth Non-Formulary Medication (Linaclotide [Linzess]) 72 mcg PO DAILY [facility] Ondansetron HCl (Zofran Inj*) 4 mg IV Q4H PRN NAUSEA/VOMITING Pantoprazole Sodium (Protonix Tab*) 40 mg PO DAILY [facility] Selegiline HCl (Emsam Patch (Nf)) 1 patch TRANSDERM DAILY [facility] Senna (Senokot 8.6 Mg Tab*) 1 tab PO BID PRN [facility]ST[facility] Vital Signs - 8 hr 05/22/19 05/22/19 05/22/19 07:15 08:00 11:15 Temperature 98.8 F 98.3 F Pulse Rate 95 76 Respiratory 18 18 16 Rate Blood Pressure 171/86 117/63 (mmHg) O2 Sat by Pulse 94 98 Oximetry 05/22/19 13:36 Temperature Pulse Rate Respiratory Rate Blood Pressure 116/71 (mmHg) O2 Sat by Pulse Oximetry Oxygen Devices in Use Now: None Appearance: Elderly male sitting in bed in NAD Ears/Nose/Mouth/Throat: Mucous Membranes Moist Neck: NL Appearance and Movements; NL JVP, Trachea Midline Respiratory: Symmetrical Chest Expansion and Respiratory Effort, Clear to Auscultation Cardiovascular: NL Sounds; No Murmurs; No JVD, RRR Neurological: Alert and Oriented x 3 - Delayed speech Lines/Tubes/Other Access: Clean, Dry and Intact Peripheral IV Nutrition: Taking PO's Result Diagrams: 05/22/19 05:06 05/21/19 05:20 Assess/Plan/Problems-Billing Assessment: Mr. Yanez is an 83 yo M with PMH of DMT2, CHF, HTN, KAREEM, chronic fatigue, depression, chronic muscle weakness; presented with cough, worsened generalized weakness, and found to have hypoxia. - Patient Problems (1) Pneumonia Code(s): J18.9 - PNEUMONIA, UNSPECIFIED ORGANISM Comment: - Now sating well on RA, but still having low-grade fevers - COVID negative - Strep pneumo and Legionella urine antigens negative - CT chest 05/19 showing RLL consolidation - Completed course of azithromycin - Continue cefdinir (2) Weakness Code(s): R53.1 - WEAKNESS Comment: - Chronic proximal muscle weakness - Patient reports feeling weak, but at baseline - Spoke with PCP (Natalio) who is concerned about rheumatological disease and requested rheum consult - Appreciate Rheumatology consult - PT recommeding [facility] but family declining and arranging for private care at [place] (3) Acute respiratory failure with hypoxia Code(s): J96.01 - ACUTE RESPIRATORY FAILURE WITH HYPOXIA Comment: - Resolved - COVID negative - Secondary to community acquired pneumonia (4) Thrombocytopenia Code(s): D69.6 - THROMBOCYTOPENIA, UNSPECIFIED Comment: - Resolved - Likely reactive d/t infection (5) Diabetes mellitus type 2 in nonobese Code(s): E11.9 - TYPE 2 DIABETES MELLITUS WITHOUT COMPLICATIONS Comment: - Good glucose control - Continue Lispro SS, Lantus (6) Hypertension Code(s): I10 - ESSENTIAL (PRIMARY) HYPERTENSION Comment: - Intermittently hypertensive - Continue hydralazine, losartan (7) CHF (congestive heart failure) Code(s): I50.9 - HEART FAILURE, UNSPECIFIED Comment: - Noted on PMHx from PCP, but is new to Dr. Lance from [place] - Unclear if systolic or diastolic - Continue furosemide (8) CKD (chronic kidney disease) Code(s): N18.9 - CHRONIC KIDNEY DISEASE, UNSPECIFIED Comment: - Baseline is unclear as patient is new to area and lack of PCP records from [place] (9) Depression Code(s): F32.9 - MAJOR DEPRESSIVE DISORDER, SINGLE EPISODE, UNSPECIFIED Comment: - Continue Abilify (10) GERD (gastroesophageal reflux disease) Code(s): K21.9 - GASTRO-ESOPHAGEAL REFLUX DISEASE WITHOUT ESOPHAGITIS Comment : - Continue pantoprazole (11) DVT prophylaxis Code(s): Z29.9 - ENCOUNTER FOR PROPHYLACTIC MEASURES, UNSPECIFIED Comment: - Lovenox (12) DNR (do not resuscitate) Comment: Status and Disposition: Inpatient. Anticipate d/c back to [place] when private care has been set up by family. Attending: Hayder Pryor
[2019-05-22 15:19] LABS: Aldolase 8.3 U/L (<7.7)
[2019-05-22] MEDS: Senna TAB 8.6 mg* TAB PO PRN (21:18)
[2019-05-23] MEDS: Acetaminophen TAB* 325 MG PO PRN ×3 (03:08→22:27)
[2019-05-23 05:57] LABS: ABS Basophils 0.1 10^3/ul (0-0.2); ABS Eosinophils 0.1 10^3/ul (0-0.6); ABS Lymphocytes 1.1 10^3/ul (1.0-4.8); ABS Monocytes 1.1 10^3/ul (0-0.8); ABS Neutrophils 8.5 10^3/ul (1.5-7.7); Eosinophil % 1.2 %; Hematocrit 29 % (42-52); Hemoglobin 9.6 g/dL (14.0-18.0); Lymphocyte % 10.2 %; Mean Corpuscular HGB Conc 34 g/dL (31-36); Mean Corpuscular Hemoglobin 32 pg (27-31); Mean Corpuscular Volume 96 fL (80-94); Mean Platelet Volume 8.7 fL (7.4-10.4); Platelet Count 233 10^3/uL (150-450); Red Blood Count 2.99 10^6 /uL (4.18-5.48); Red Cell Distribution Width 15 % (10-15)
[2019-05-23] MEDS: Furosemide TAB* 20 MG PO SCH (09:03)
[2019-05-23] MEDS: Losartan TAB* 25 MG PO SCH (09:03)
[2019-05-23] MEDS: Bisoprolol TAB* 5 MG PO SCH (09:04)
[2019-05-23] MEDS: Cetirizine* 10 MG TAB PO SCH (09:07)
[2019-05-23] MEDS: Pantoprazole TAB * 40 MG TAB PO SCH (09:07)
[2019-05-23] MEDS: hydrALAZINE TAB* 10 MG PO SCH ×3 (09:08→22:28)
[2019-05-23] MEDS: Atorvastatin* 20 MG TAB PO SCH (09:08)
[2019-05-23] MEDS: ARIPiprazole TAB* 5 MG PO SCH (09:08)
[2019-05-23] MEDS: Modafinil TAB* 100 MG PO SCH (09:10)
[2019-05-23] MEDS: guaiFENesin ER TAB 600 MG PO SCH ×2 (09:11→22:27)
[2019-05-23] MEDS: Cefdinir cap* 300 MG CAP PO SCH ×2 (09:12→22:27)
[2019-05-23] MEDS: Insulin GLARGINE(*) 1 UNITS UNIT SUBCUT SCH (09:13)
[2019-05-23] MEDS: Insulin LISPRO* 1 UNITS UNIT SUBCUT SCH ×3 (09:13→17:28)
[2019-05-23] MEDS: LINACLOTIDE 72 MCG PO SCH (09:13)
[2019-05-23] MEDS: SELEGILINE TRANSDERM SCH (09:13)
--- NOTE | 2019-05-23 12:04 | PN ---
Subjective Date of Service: 05/23/19 Interval History: Mr. Yanez is feeling well this morning. He is smiling and in good spirits. Just got done working with PT. He feels as though he has a bit more energy today and that his body is listening to him more than it has the last few days. Denies CP, SOB, cough. PT reports the patient did better today when getting up to the chair. No concerns from nursing. Family History: Unchanged from Admission Social History: Unchanged from Admission Past Medical History: Unchanged from Admission Objective Active Medications: Acetaminophen (Tylenol Tab*) 650 mg PO Q4H PRN MILD PAIN or TEMP > 100.4 Al Hydrox/Mg Hydrox/Simethicone (Maalox Plus*) 30 ml PO Q6H PRN INDIGESTION Albuterol (Ventolin Hfa Inhaler*) 2 puff INH Q2H PRN SOB/WHEEZING Aripiprazole (Abilify Tab*) 2.5 mg PO DAILY [facility] Atorvastatin Calcium (Lipitor*) 20 mg PO DAILY [facility] Bisoprolol Fumarate (Zebeta Tab*) 5 mg PO DAILY [facility] Cefdinir (Cefdinir Cap*) 300 mg PO BID [facility] Cetirizine HCl (Zyrtec*) 10 mg PO DAILY [facility] Dextrose (D50w Syringe 50 Ml*) 12.5 gm IV PUSH .FOR FS < 60 - SS PRN FS < 60 Enoxaparin Sodium (Lovenox(*)) 40 mg SUBCUT Q24H [facility] Furosemide (Lasix Tab*) 20 mg PO DAILY [facility] Guaifenesin (Mucinex*) 1,200 mg PO BID [facility] Hydralazine HCl (Apresoline Tab*) 10 mg PO TID [facility] Insulin Glargine (Lantus(*)) 10 units SUBCUT Q24H [facility] Insulin Human Lispro (Humalog*) 0 units SUBCUT AC [facility]; Protocol Losartan Potassium (Cozaar Tab*) 50 mg PO DAILY [facility] Metoprolol Tartrate (Lopressor Iv*) 5 mg IV Q6H PRN HR>120 Modafinil (Provigil Tab*) 50 mg PO DAILY [facility] Multi-Ingredient Mouthwash/Gargle (Biotene Dry Mouth Oral Rinse(Nf)) 15 ml MT . DIRECTED PRN dry mouth Non-Formulary Medication (Linaclotide [Linzess]) 72 mcg PO DAILY [facility] Ondansetron HCl (Zofran Inj*) 4 mg IV Q4H PRN NAUSEA/VOMITING Pantoprazole Sodium (Protonix Tab*) 40 mg PO DAILY [facility] Selegiline HCl (Emsam Patch (Nf)) 1 patch TRANSDERM DAILY [facility] Senna (Senokot 8.6 Mg Tab*) 1 tab PO BID PRN CONSTIPATION Vital Signs - 8 hr 05/23/19 05/23/19 05/23/19 05:19 07:15 07:25 Temperature 97.2 F Pulse Rate 96 87 Respiratory 20 16 18 Rate Blood Pressure 158/81 (mmHg) O2 Sat by Pulse 94 97 Oximetry Oxygen Devices in Use Now: None Appearance: Elderly male sitting in chair in NAD Ears/Nose/Mouth/Throat: Mucous Membranes Moist Neck: NL Appearance and Movements; NL JVP, Trachea Midline Respiratory: Symmetrical Chest Expansion and Respiratory Effort, Clear to Auscultation Cardiovascular: NL Sounds; No Murmurs; No JVD, RRR Extremities: No Edema Neurological: Alert and Oriented x 3 Nutrition: Taking PO's Result Diagrams: 05/23/19 05:30 05/21/19 05:20 Assess/Plan/Problems-Billing Assessment: Mr. Yanez is an 83 yo M with PMH of DMT2, CHF, HTN, KAREEM, chronic fatigue, depression, chronic muscle weakness; presented with cough, worsened generalized weakness, and found to have hypoxia. - Patient Problems (1) Pneumonia Code(s): J18.9 - PNEUMONIA, UNSPECIFIED ORGANISM Comment: - Now sating well on RA, but still having low-grade fevers - COVID negative - Strep pneumo and Legionella urine antigens negative - CT chest 05/19 showing RLL consolidation - Completed course of azithromycin - Continue cefdinir (2) Weakness Code(s): R53.1 - WEAKNESS Comment: - Chronic proximal muscle weakness - Patient reports feeling weak, but at baseline - Spoke with PCP (Natalio) who is concerned about rheumatological disease and requested rheum consult - Appreciate Rheumatology consult - PT recommeding [facility] but family declining and arranging for private care at [facility]; spoke with daughter who reports [employer] home electrical fore[employer] service will be set up Friday or Friday (3) Acute respiratory failure with hypoxia Code(s): J96.01 - ACUTE RESPIRATORY FAILURE WITH HYPOXIA Comment: - Resolved - COVID negative - Secondary to community acquired pneumonia (4) Thrombocytopenia Code(s): D69.6 - THROMBOCYTOPENIA, UNSPECIFIED Comment: - Resolved - Likely reactive d/t infection (5) Diabetes mellitus type 2 in nonobese Code(s): E11.9 - TYPE 2 DIABETES MELLITUS WITHOUT COMPLICATIONS Comment: - Good glucose control - Continue Lispro SS, Lantus (6) Hypertension Code(s): I10 - ESSENTIAL (PRIMARY) HYPERTENSION Comment: - Intermittently hypertensive - Continue hydralazine, losartan (7) CHF (congestive heart failure) Code(s): I50.9 - HEART FAILURE, UNSPECIFIED Comment: - Noted on PMHx from PCP, but is new to Dr. Lance from [place] - Unclear if systolic or diastolic - Continue furosemide (8) CKD (chronic kidney disease) Code(s): N18.9 - CHRONIC KIDNEY DISEASE, UNSPECIFIED Comment: - Baseline is unclear as patient is new to [facility] and lack of PCP records from [place] (9) Depression Code(s): F32.9 - MAJOR DEPRESSIVE DISORDER, SINGLE EPISODE, UNSPECIFIED Comment: - Continue Abilify (10) GERD (gastroesophageal reflux disease) Code(s): K21.9 - GASTRO-ESOPHAGEAL REFLUX DISEASE WITHOUT ESOPHAGITIS Comment : - Continue pantoprazole (11) DVT prophylaxis Code(s): Z29.9 - ENCOUNTER FOR PROPHYLACTIC MEASURES, UNSPECIFIED Comment: - Lovenox (12) DNR (do not resuscitate) Comment: Status and Disposition: Inpatient. Anticipate d/c back to [facility] when private care has been set up by family, either Friday or Friday. Attending: Hayder Pryor
[2019-05-23] MEDS: Enoxaparin(*) 40 MG/0.4 ML SYR SUBCUT SCH (13:01)
[2019-05-24] MEDS: Insulin LISPRO* 1 UNITS UNIT SUBCUT SCH ×3 (08:25→18:27)
[2019-05-24] MEDS: guaiFENesin ER TAB 600 MG PO SCH ×2 (09:25→22:01)
[2019-05-24] MEDS: ARIPiprazole TAB* 5 MG PO SCH (09:25)
[2019-05-24] MEDS: Acetaminophen TAB* 325 MG PO PRN (09:25)
[2019-05-24] MEDS: Furosemide TAB* 20 MG PO SCH (09:25)
[2019-05-24] MEDS: Modafinil TAB* 100 MG PO SCH (09:25)
[2019-05-24] MEDS: Atorvastatin* 20 MG TAB PO SCH (09:25)
[2019-05-24] MEDS: Losartan TAB* 25 MG PO SCH (09:25)
[2019-05-24] MEDS: Cetirizine* 10 MG TAB PO SCH (09:26)
[2019-05-24] MEDS: Insulin GLARGINE(*) 1 UNITS UNIT SUBCUT SCH (09:26)
[2019-05-24] MEDS: hydrALAZINE TAB* 10 MG PO SCH ×3 (09:26→22:01)
[2019-05-24] MEDS: Pantoprazole TAB * 40 MG TAB PO SCH (09:26)
[2019-05-24] MEDS: Cefdinir cap* 300 MG CAP PO SCH (09:29)
[2019-05-24] MEDS: LINACLOTIDE 72 MCG PO SCH (09:38)
[2019-05-24] MEDS: SELEGILINE TRANSDERM SCH (09:39)
[2019-05-24] MEDS: Bisoprolol TAB* 5 MG PO SCH (09:43)
[2019-05-24] MEDS: Enoxaparin(*) 40 MG/0.4 ML SYR SUBCUT SCH (12:20)
--- NOTE | 2019-05-24 14:45 | PN ---
Subjective Date of Service: 05/24/19 Interval History: Mr. Yanez is feeling well this morning. He offers no complaints. He is in good spirits and feels like he has more energy today. He is feeling better and better each day. Denies CP, SOB, cough. No concerns from nursing. Family History: Unchanged from Admission Social History: Unchanged from Admission Past Medical History: Unchanged from Admission Objective Active Medications: Acetaminophen (Tylenol Tab*) 650 mg PO Q4H PRN MILD PAIN or TEMP > 100.4 Al Hydrox/Mg Hydrox/Simethicone (Maalox Plus*) 30 ml PO Q6H PRN INDIGESTION Albuterol (Ventolin Hfa Inhaler*) 2 puff INH Q2H PRN SOB/WHEEZING Aripiprazole (Abilify Tab*) 2.5 mg PO DAILY [facility] Atorvastatin Calcium (Lipitor*) 20 mg PO DAILY [facility] Bisoprolol Fumarate (Zebeta Tab*) 5 mg PO DAILY [facility] Cetirizine HCl (Zyrtec*) 10 mg PO DAILY [facility] Dextrose (D50w Syringe 50 Ml*) 12.5 gm IV PUSH .FOR FS < 60 - SS PRN FS < 60 Enoxaparin Sodium (Lovenox(*)) 40 mg SUBCUT Q24H [facility] Furosemide (Lasix Tab*) 20 mg PO DAILY [facility] Guaifenesin (Mucinex*) 1,200 mg PO BID [facility] Hydralazine HCl (Apresoline Tab*) 10 mg PO TID [facility] Insulin Glargine (Lantus(*)) 10 units SUBCUT Q24H [facility] Insulin Human Lispro (Humalog*) 0 units SUBCUT AC [facility]; Protocol Losartan Potassium (Cozaar Tab*) 50 mg PO DAILY [facility] Metoprolol Tartrate (Lopressor Iv*) 5 mg IV Q6H PRN HR>120 Modafinil (Provigil Tab*) 50 mg PO DAILY [facility] Multi-Ingredient Mouthwash/Gargle (Biotene Dry Mouth Oral Rinse(Nf)) 15 ml MT . DIRECTED PRN dry mouth Non-Formulary Medication (Linaclotide [Linzess]) 72 mcg PO DAILY [facility] Ondansetron HCl (Zofran Inj*) 4 mg IV Q4H PRN NAUSEA/VOMITING Pantoprazole Sodium (Protonix Tab*) 40 mg PO DAILY [facility] Selegiline HCl (Emsam Patch (Nf)) 1 patch TRANSDERM DAILY [facility] Senna (Senokot 8.6 Mg Tab*) 1 tab PO BID PRN CONSTIPATION Vital Signs - 8 hr 05/24/19 05/24/19 05/24/19 07:46 08:00 11:22 Temperature 98.7 F 97.7 F Pulse Rate 109 78 Respiratory 20 20 18 Rate Blood Pressure 139/65 142/114 (mmHg) O2 Sat by Pulse 95 95 92 Oximetry Oxygen Devices in Use Now: None Appearance: Elderly male sitting in bed eating in NAD Ears/Nose/Mouth/Throat: Mucous Membranes Moist Neck: NL Appearance and Movements; NL JVP, Trachea Midline Respiratory: Symmetrical Chest Expansion and Respiratory Effort, Clear to Auscultation Cardiovascular: NL Sounds; No Murmurs; No JVD, RRR Abdominal: NL Sounds; No Tenderness; No Distention Extremities: No Edema Neurological: Alert and Oriented x 3 Nutrition: Taking PO's Result Diagrams: 05/23/19 05:30 05/21/19 05:20 Assess/Plan/Problems-Billing Assessment: Mr. Yanez is an 83 yo M with PMH of DMT2, CHF, HTN, KAREEM, chronic fatigue, depression, chronic muscle weakness; presented with cough, worsened generalized weakness, and found to have hypoxia. - Patient Problems (1) Pneumonia Code(s): J18.9 - PNEUMONIA, UNSPECIFIED ORGANISM Comment: - Now sating well on RA, but still having low-grade fevers - COVID negative - Strep pneumo and Legionella urine antigens negative - CT chest 05/19 showing RLL consolidation - Completed 5 days of azithromycin and 7 days of cefdinir (2) Weakness Code(s): R53.1 - WEAKNESS Comment: - Chronic proximal muscle weakness - Patient reports feeling weak, but at baseline - Spoke with PCP (Natalio) who is concerned about rheumatological disease and requested rheum consult - Appreciate Rheumatology consult - PT recommeding [facility] but family declining and arranging for private care at [place] (3) Acute respiratory failure with hypoxia Code(s): J96.01 - ACUTE RESPIRATORY FAILURE WITH HYPOXIA Comment: - Resolved - COVID negative - Secondary to community acquired pneumonia (4) Thrombocytopenia Code(s): D69.6 - THROMBOCYTOPENIA, UNSPECIFIED Comment: - Resolved - Likely reactive d/t infection (5) Diabetes mellitus type 2 in nonobese Code(s): E11.9 - TYPE 2 DIABETES MELLITUS WITHOUT COMPLICATIONS Comment: - Good glucose control - Continue Lispro SS, Lantus (6) Hypertension Code(s): I10 - ESSENTIAL (PRIMARY) HYPERTENSION Comment: - Intermittently hypertensive - Continue hydralazine, losartan (7) CHF (congestive heart failure) Code(s): I50.9 - HEART FAILURE, UNSPECIFIED Comment: - Noted on PMHx from PCP, but is new to Dr. Lance from [place] - Unclear if systolic or diastolic - Continue furosemide (8) CKD (chronic kidney disease) Code(s): N18.9 - CHRONIC KIDNEY DISEASE, UNSPECIFIED Comment: - Baseline is unclear as patient is new to [facility] and lack of PCP records from [place] (9) Depression Code(s): F32.9 - MAJOR DEPRESSIVE DISORDER, SINGLE EPISODE, UNSPECIFIED Comment: - Continue Abilify (10) GERD (gastroesophageal reflux disease) Code(s): K21.9 - GASTRO-ESOPHAGEAL REFLUX DISEASE WITHOUT ESOPHAGITIS Comment : - Continue pantoprazole (11) DVT prophylaxis Code(s): Z29.9 - ENCOUNTER FOR PROPHYLACTIC MEASURES, UNSPECIFIED Comment: - Lovenox (12) DNR (do not resuscitate) Comment: Status and Disposition: Inpatient. Medically stable. Anticipate d/c back to [place] when private care has been set up by family. Attending: Hayder Pryor
[2019-05-24 20:05] LABS: Cyclic Citrullinated Peptide <15.6 U
[2019-05-25] MEDS: Insulin LISPRO* 1 UNITS UNIT SUBCUT SCH ×3 (07:42→16:49)
[2019-05-25] MEDS: LINACLOTIDE 72 MCG PO SCH (09:04)
[2019-05-25] MEDS: ARIPiprazole TAB* 5 MG PO SCH (09:15)
[2019-05-25] MEDS: Modafinil TAB* 100 MG PO SCH (09:16)
[2019-05-25] MEDS: Losartan TAB* 25 MG PO SCH (09:17)
[2019-05-25] MEDS: Pantoprazole TAB * 40 MG TAB PO SCH (09:17)
[2019-05-25] MEDS: Insulin GLARGINE(*) 1 UNITS UNIT SUBCUT SCH (09:18)
[2019-05-25] MEDS: Bisoprolol TAB* 5 MG PO SCH (09:18)
[2019-05-25] MEDS: Furosemide TAB* 20 MG PO SCH (09:18)
[2019-05-25] MEDS: Cetirizine* 10 MG TAB PO SCH (09:18)
[2019-05-25] MEDS: guaiFENesin ER TAB 600 MG PO SCH ×2 (09:18→21:07)
[2019-05-25] MEDS: hydrALAZINE TAB* 10 MG PO SCH ×3 (09:18→21:08)
[2019-05-25] MEDS: SELEGILINE TRANSDERM SCH (09:19)
[2019-05-25] MEDS: Enoxaparin(*) 40 MG/0.4 ML SYR SUBCUT SCH (10:56)
[2019-05-25] MEDS: Atorvastatin* 20 MG TAB PO SCH (10:56)
--- NOTE | 2019-05-25 11:24 | PN ---
Subjective Date of Service: 05/25/19 Interval History: Mr. Yanez is feeling tired this morning. He did not sleep well overnight and is not sure why. Does not remember if he ate breakfast. Denies CP, SOB, cough. Looking forward to going home. No concerns from nursing. Family History: Unchanged from Admission Social History: Unchanged from Admission Past Medical History: Unchanged from Admission Objective Active Medications: Acetaminophen (Tylenol Tab*) 650 mg PO Q4H PRN MILD PAIN or TEMP > 100.4 Al Hydrox/Mg Hydrox/Simethicone (Maalox Plus*) 30 ml PO Q6H PRN INDIGESTION Albuterol (Ventolin Hfa Inhaler*) 2 puff INH Q2H PRN SOB/WHEEZING Aripiprazole (Abilify Tab*) 2.5 mg PO DAILY [facility] Atorvastatin Calcium (Lipitor*) 20 mg PO DAILY [facility] Bisoprolol Fumarate (Zebeta Tab*) 5 mg PO DAILY [facility] Cetirizine HCl (Zyrtec*) 10 mg PO DAILY [facility] Dextrose (D50w Syringe 50 Ml*) 12.5 gm IV PUSH .FOR FS < 60 - SS PRN FS < 60 Enoxaparin Sodium (Lovenox(*)) 40 mg SUBCUT Q24H [facility] Furosemide (Lasix Tab*) 20 mg PO DAILY [facility] Guaifenesin (Mucinex*) 1,200 mg PO BID [facility] Hydralazine HCl (Apresoline Tab*) 10 mg PO TID [facility] Insulin Glargine (Lantus(*)) 10 units SUBCUT Q24H [facility] Insulin Human Lispro (Humalog*) 0 units SUBCUT AC [facility]; Protocol Losartan Potassium (Cozaar Tab*) 50 mg PO DAILY [facility] Metoprolol Tartrate (Lopressor Iv*) 5 mg IV Q6H PRN HR>120 Modafinil (Provigil Tab*) 50 mg PO DAILY [facility] Multi-Ingredient Mouthwash/Gargle (Biotene Dry Mouth Oral Rinse(Nf)) 15 ml MT . DIRECTED PRN dry mouth Non-Formulary Medication (Linaclotide [Linzess]) 72 mcg PO DAILY [facility] Ondansetron HCl (Zofran Inj*) 4 mg IV Q4H PRN NAUSEA/VOMITING Pantoprazole Sodium (Protonix Tab*) 40 mg PO DAILY [facility] Prednisone (Deltasone 10 Mg Tab) 10 mg PO BID [facility] Selegiline HCl (Emsam Patch (Nf)) 1 patch TRANSDERM DAILY [facility] Senna (Senokot 8.6 Mg Tab*) 1 tab PO BID PRN CONSTIPATION Vital Signs - 8 hr 05/25/19 05/25/19 07:15 08:00 Temperature 98.8 F Pulse Rate 93 Respiratory 16 16 Rate Blood Pressure 154/107 (mmHg) O2 Sat by Pulse 96 Oximetry Oxygen Devices in Use Now: None Appearance: Elderly male lying in bed in NAD Ears/Nose/Mouth/Throat: Mucous Membranes Moist Neck: NL Appearance and Movements; NL JVP, Trachea Midline Respiratory: Symmetrical Chest Expansion and Respiratory Effort, Clear to Auscultation Cardiovascular: NL Sounds; No Murmurs; No JVD, RRR Extremities: No Edema Neurological: Alert and Oriented x 3 - Delayed speech Lines/Tubes/Other Access: Clean, Dry and Intact Peripheral IV Nutrition: Taking PO's Result Diagrams: 05/23/19 05:30 05/21/19 05:20 Assess/Plan/Problems-Billing Assessment: Mr. Yanez is an 83 yo M with PMH of DMT2, CHF, HTN, KAREEM, chronic fatigue, depression, chronic muscle weakness; presented with cough, worsened generalized weakness, and found to have hypoxia. - Patient Problems (1) Pneumonia Code(s): J18.9 - PNEUMONIA, UNSPECIFIED ORGANISM Comment: - Now sating well on RA, but still having low-grade fevers - COVID negative - Strep pneumo and Legionella urine antigens negative - CT chest 05/19 showing RLL consolidation - Completed 5 days of azithromycin and 7 days of cefdinir (2) Weakness Code(s): R53.1 - WEAKNESS Comment: - Chronic proximal muscle weakness - Patient reports feeling weak, but at baseline - Spoke with PCP (Natalio) who is concerned about rheumatological disease and requested rheum consult - Appreciate Rheumatology consult; recommends starting prednisone for possible PMR - PT recommeding [facility] but family declining and arranging for private care at [place] - Patient would benefit from a wheelchair to assist with ADLs within the home - Start prednisone per Rheumatology recs; will need to taper outpatient (3) Acute respiratory failure with hypoxia Code(s): J96.01 - ACUTE RESPIRATORY FAILURE WITH HYPOXIA Comment: - Resolved - COVID negative - Secondary to community acquired pneumonia (4) Thrombocytopenia Code(s): D69.6 - THROMBOCYTOPENIA, UNSPECIFIED Comment: - Resolved - Likely reactive d/t infection (5) Diabetes mellitus type 2 in nonobese Code(s): E11.9 - TYPE 2 DIABETES MELLITUS WITHOUT COMPLICATIONS Comment: - Good glucose control - Continue Lispro SS, Lantus; resume metformin (6) Hypertension Code(s): I10 - ESSENTIAL (PRIMARY) HYPERTENSION Comment: - Intermittently hypertensive - Continue hydralazine, losartan (7) CHF (congestive heart failure) Code(s): I50.9 - HEART FAILURE, UNSPECIFIED Comment: - Noted on PMHx from PCP, but is new to Dr. Lance from [place] - Unclear if systolic or diastolic - Continue furosemide (8) CKD (chronic kidney disease) Code(s): N18.9 - CHRONIC KIDNEY DISEASE, UNSPECIFIED Comment: - Baseline is unclear as patient is new to located within [facility] and lack of PCP records from [place] (9) Depression Code(s): F32.9 - MAJOR DEPRESSIVE DISORDER, SINGLE EPISODE, UNSPECIFIED Comment: - Continue Abilify (10) GERD (gastroesophageal reflux disease) Code(s): K21.9 - GASTRO-ESOPHAGEAL REFLUX DISEASE WITHOUT ESOPHAGITIS Comment : - Continue pantoprazole (11) DVT prophylaxis Code(s): Z29.9 - ENCOUNTER FOR PROPHYLACTIC MEASURES, UNSPECIFIED Comment: - Lovenox (12) DNR (do not resuscitate) Comment: Status and Disposition: Inpatient. Medically stable. Anticipate d/c back to [place] when private care has been set up by family. Attending: Sugey Subramanian
--- NOTE | 2019-05-25 12:51 | PN ---
Medicine Progress Note - Date of Service Date of Service: 05/25/19 - Chief Complaint: Elevated ESR, myalgias - Subjective Subjective: Mr. Yanez is able to eat and mobilize. However he still very restricted and continued to have generalized weakness despite completing a course of antibiotics for pneumonia. Discussed his case at length with his primary care doctor, Dr. Lance, and hospitalist given his persistent inflammation. Reviewed other autoimmune labs which revealed a low positive RF. He does not have joint synovitis but he does have generalized joint stiffness. - Objective Objective: Vital Signs 05/24/19 05/24/19 05/24/19 15:45 19:25 20:00 Temperature 97.7 F 98.7 F Pulse Rate 74 88 Respiratory 18 18 18 Rate Blood Pressure 140/79 163/80 (mmHg) O2 Sat by Pulse 100 96 Oximetry 05/24/19 05/25/19 05/25/19 22:57 02:55 07:15 Temperature 97.8 F 97.5 F 98.8 F Pulse Rate 83 85 93 Respiratory 16 17 16 Rate Blood Pressure 160/82 156/86 154/107 (mmHg) O2 Sat by Pulse 98 96 96 Oximetry 05/25/19 05/25/19 08:00 11:15 Temperature 98.0 F Pulse Rate 72 Respiratory 16 20 Rate Blood Pressure 108/67 (mmHg) O2 Sat by Pulse 98 Oximetry Current Medications Acetaminophen (Tylenol Tab*) 650 mg PO Q4H PRN PRN Reason: MILD PAIN or TEMP > 100.4 Last Admin: 05/24/19 09:25 Dose: 650 mg Al Hydrox/Mg Hydrox/Simethicone (Maalox Plus*) 30 ml PO Q6H PRN PRN Reason: INDIGESTION Albuterol (Ventolin Hfa Inhaler*) 2 puff INH Q2H PRN PRN Reason: SOB/WHEEZING Aripiprazole (Abilify Tab*) 2.5 mg PO DAILY [facility] Last Admin: 05/25/19 09:15 Dose: 2.5 mg Atorvastatin Calcium (Lipitor*) 20 mg PO DAILY [facility] Last Admin: 05/25/19 10:56 Dose: 20 mg Bisoprolol Fumarate (Zebeta Tab*) 5 mg PO DAILY [facility] Last Admin: 05/25/19 09:18 Dose: 5 mg Cetirizine HCl (Zyrtec*) 10 mg PO DAILY [facility] Last Admin: 05/25/19 09:18 Dose: 10 mg Dextrose (D50w Syringe 50 Ml*) 12.5 gm IV PUSH .FOR FS < 60 - SS PRN PRN Reason: FS < 60 Enoxaparin Sodium (Lovenox(*)) 40 mg SUBCUT Q24H [facility] Last Admin: 05/25/19 10:56 Dose: 40 mg Furosemide (Lasix Tab*) 20 mg PO DAILY [facility] Last Admin: 05/25/19 09:18 Dose: 20 mg Guaifenesin (Mucinex*) 1,200 mg PO BID [facility] Last Admin: 05/25/19 09:18 Dose: 1,200 mg Hydralazine HCl (Apresoline Tab*) 10 mg PO TID [facility] Last Admin: 05/25/19 09:18 Dose: 10 mg Insulin Glargine (Lantus(*)) 10 units SUBCUT Q24H [facility] Last Admin: 05/25/19 09:18 Dose: 10 units Insulin Human Lispro (Humalog*) 0 units SUBCUT [facility]; Protocol Last Admin: 05/25/19 12:23 Dose: 2 unit Losartan Potassium (Cozaar Tab*) 50 mg PO DAILY [facility] Last Admin: 05/25/19 09:17 Dose: 50 mg Metformin HCl (Glucophage*) 500 mg PO BID [facility] Metoprolol Tartrate (Lopressor Iv*) 5 mg IV Q6H PRN PRN Reason: HR>120 Modafinil (Provigil Tab*) 50 mg PO DAILY [facility] Last Admin: 05/25/19 09:16 Dose: 50 mg Multi-Ingredient Mouthwash/Gargle (Biotene Dry Mouth Oral Rinse(Nf)) 15 ml MT . DIRECTED PRN PRN Reason: dry mouth Last Admin: 05/23/19 03:09 Dose: 15 ml Non-Formulary Medication (Linaclotide [Linzess]) 72 mcg PO DAILY [facility] Last Admin: 05/25/19 09:04 Dose: Not Given Ondansetron HCl (Zofran Inj*) 4 mg IV Q4H PRN PRN Reason: NAUSEA/VOMITING Pantoprazole Sodium (Protonix Tab*) 40 mg PO DAILY [facility] Last Admin: 05/25/19 09:17 Dose: 40 mg Prednisone (Deltasone 10 Mg Tab) 10 mg PO BID [facility] Last Admin: 05/25/19 10:56 Dose: 10 mg Selegiline HCl (Emsam Patch (Nf)) 1 patch TRANSDERM DAILY [facility] Last Admin: 05/25/19 09:19 Dose: Not Given Senna (Senokot 8.6 Mg Tab*) 1 tab PO BID PRN PRN Reason: CONSTIPATION Last Admin: 05/22/19 21:18 Dose: 1 tab Intake & Output 05/23/19 05/24/19 05/25/19 05/26/19 06:59 06:59 06:59 06:59 Intake Total 9143 221 2707 Output Total 275 325 Balance 6988 986 5055 Intake: Oral 2289 094 4052 Output: Urine 275 325 Other: Estimated Void Small # Bowel Movements 1 1 Estimated Stool Amount Large Large Large # Voids 1 2 ADLs: Meal Record Start: 05/17/19 12: 21 Freq: DAILY@0900,1400,1800 Status: Active Protocol: Created 05/17/19 12:21 System (Rec: 05/17/19 12:21 System MED-C05) Document 05/17/19 18:00 [id number] (Rec: 05/17/19 18:22 [id number] MED-C05) Document 05/18/19 09:00 [id number] (Rec: 05/18/19 14:54 [id number] MED-C05) Document 05/18/19 14:00 ZFQ4719 (Rec: 05/18/19 17:32 [id number] TELE-M12) Document 05/18/19 18:00 [id number] (Rec: 05/18/19 20:14 [id number] TELE-M12) Document 05/19/19 09:00 [id number] (Rec: 05/19/19 11:18 [id number] TELE-M12) Document 05/19/19 13:37 RZO1704 (Rec: 05/19/19 13:37 [id number] MED-C12) Document 05/19/19 18:00 [id number] (Rec: 05/19/19 20:49 [id number] TELE-C10) Document 05/21/19 13:59 [id number] (Rec: 05/21/19 13:59 ACW7309 TELE-M22) Document 05/21/19 14:00 JVA8218 (Rec: 05/21/19 14:17 FIV6014 TELE-C09) Document 05/21/19 18:00 [id number] (Rec: 05/21/19 20:13 [id number] TELE-C10) Document 05/22/19 09:00 [id number] (Rec: 05/22/19 09:21 MCI9904 TELE-C09) Document 05/22/19 14:00 WYA7582 (Rec: 05/22/19 14:36 HAK9790 TELE-C09) Document 05/22/19 18:00 VZL4144 (Rec: 05/22/19 22:22 DTU6703 TELE-C10) Document 05/23/19 09:00 RND2254 (Rec: 05/23/19 10:45 TIK0947 TELE-C09) Document 05/23/19 14:00 XHA0052 (Rec: 05/23/19 14:45 [id number] TELE-C09) Document 05/23/19 17:57 WKU3872 (Rec: 05/23/19 17:58 EDI7476 TELE-C03) Document 05/24/19 09:00 VKI7795 (Rec: 05/24/19 09:32 WLC5462 TELE-C11) Document 05/24/19 13:21 EAQ4611 (Rec: 05/24/19 13:21 PZZ1784 TELE-C11) Document 05/24/19 17:40 JOS5889 (Rec: 05/24/19 17:40 ZNZ0418 TELE-C11) Intake and Output Start: 05/17/19 08: 36 Freq: Status: Complete Protocol: Created 05/17/19 08:36 System (Rec: 05/17/19 08:36 System EDRM-C15) Intake and Output Start: 05/17/19 12: 21 Freq: DAILY@0600,1400,2200 Status: Active Protocol: Created 05/17/19 12:21 System (Rec: 05/17/19 12:21 System MED-C05) Document 05/18/19 05:28 [id number] (Rec: 05/18/19 05:28 [id number] MED-M04) Document 05/18/19 14:00 MIE9250 (Rec: 05/18/19 14:55 ZQK2155 MED-C05) Document 05/18/19 22:00 [id number] (Rec: 05/18/19 22:35 FOG3630 TELE-M12) Document 05/19/19 03:41 ZUA1407 (Rec: 05/19/19 03:41 [id number] TELE-M12) Document 05/19/19 22:00 PFL7195 (Rec: 05/19/19 22:13 EVF0866 TELE-C10) Document 05/20/19 06:34 ZSB5191 (Rec: 05/20/19 06:40 JOL9364 TELE-C10) Document 05/21/19 06:00 XRS1815 (Rec: 05/21/19 06:44 [id number] TELE-C09) Document 05/21/19 14:00 HZD0718 (Rec: 05/21/19 14:18 [id number] TELE-C09) Document 05/21/19 19:57 PBP9547 (Rec: 05/21/19 19:57 [id number] TELE-C09) Document 05/22/19 06:00 VPV2441 (Rec: 05/22/19 06:17 PED3222 TELE-C05) Document 05/22/19 14:00 [id number] (Rec: 05/22/19 14:37 [id number] TELE-C09) Document 05/22/19 14:42 MWV5633 (Rec: 05/22/19 14:42 RSR9429 TELE-C09) Document 05/22/19 20:24 WXA4662 (Rec: 05/22/19 20:25 ZPS9018 TELE-C09) Document 05/23/19 04:59 [id number] (Rec: 05/23/19 05:00 YFW8615 TELE-C07) Document 05/23/19 14:00 [id number] (Rec: 05/23/19 14:47 OBI4895 TELE-C09) Document 05/23/19 22:00 JHS4154 (Rec: 05/23/19 22:11 WZB2348 TELE-C03) Document 05/24/19 06:00 PIZ7092 (Rec: 05/24/19 06:39 KUS3375 TELE-C13) Document 05/24/19 10:55 EZY7489 (Rec: 05/24/19 10:55 TGA1818 TELE-C11) Document 05/24/19 22:00 SQJ2225 (Rec: 05/24/19 22:31 RPN2199 TELE-C10) Document 05/25/19 05:42 [id number] (Rec: 05/25/19 05:42 RNM9321 TELE-C10) Last Finger Stick Glucose Documented by Nursing: General:NAD sitting up eating Lungs:Clear to auscultation Cardiovascular:RRR S1 and S2 present no m/r/g Abdomen:Sitting up eating; no complaints Extremities:no edema Neuro:Motor strength 4/5 quads and biceps. Mild shoulder discomfort and hip restriction. Oriented to place but not date Able to follow commands - Labs Labs: Laboratory Results - last 24 hr 05/20/19 05/24/19 05/25/19 18:40 17:03 07:27 POC Glucose (mg/dL) 99 129 H Cyclic Citrull Peptide <15.6 Anti-Nuclear Antibody 0.5 HOME Interpretation See comment 05/25/19 11:29 POC Glucose (mg/dL) 186 H Cyclic Citrull Peptide Anti-Nuclear Antibody HOME Interpretation - Assessment Assessment: JULIA YANEZ is a 83 year old M. Patient's diagnosis is HYPOXIA, PRODUCTIVE COUGH, FEVER. Based on age, muscular and joint stiffness, prolonged weakness and elevated inflammatory markers, he likely has polymyalgia rheumatica. He continues to be restricted in activities despite being improved from his pneumonia. Anemia: likely in part related to chronic inflammation and may improve with steroid therapy which may be initiated at 10 mg twice daily Depression: on Selegiline patch as outpatient Would check vitamin D as he may require prolonged low dose steroids - Plan Plan: Spoke to hospitalist today. Prednisone 10 mg twice daily added. Monitor blood sugar; we will need to gradually taper it as an outpatient Depression; he is on Selegiline as an out patient
[2019-05-25] MEDS: metFORMIN* 500 MG TAB PO SCH (21:07)
[2019-05-26] MEDS: Bisoprolol TAB* 5 MG PO SCH (08:10)
[2019-05-26] MEDS: Modafinil TAB* 100 MG PO SCH (08:10)
[2019-05-26] MEDS: ARIPiprazole TAB* 5 MG PO SCH (08:11)
[2019-05-26] MEDS: Insulin LISPRO* 1 UNITS UNIT SUBCUT SCH ×2 (08:12→12:33)
[2019-05-26] MEDS: Losartan TAB* 25 MG PO SCH (08:12)
[2019-05-26] MEDS: Pantoprazole TAB * 40 MG TAB PO SCH (08:12)
[2019-05-26] MEDS: Insulin GLARGINE(*) 1 UNITS UNIT SUBCUT SCH (08:12)
[2019-05-26] MEDS: Atorvastatin* 20 MG TAB PO SCH (08:12)
[2019-05-26] MEDS: Furosemide TAB* 20 MG PO SCH (08:12)
[2019-05-26] MEDS: metFORMIN* 500 MG TAB PO SCH (08:12)
[2019-05-26] MEDS: hydrALAZINE TAB* 10 MG PO SCH ×2 (08:12→14:14)
[2019-05-26] MEDS: guaiFENesin ER TAB 600 MG PO SCH (08:12)
[2019-05-26] MEDS: Cetirizine* 10 MG TAB PO SCH (08:12)
[2019-05-26] MEDS: LINACLOTIDE 72 MCG PO SCH (08:49)
[2019-05-26] MEDS: SELEGILINE TRANSDERM SCH (08:50)
[2019-05-26 11:08] LABS: ABS Lymphocytes 0.8 10^3/ul (1.0-4.8); ABS Monocytes 0.5 10^3/ul (0-0.8); ABS Neutrophils 9.1 10^3/ul (1.5-7.7); Eosinophil % 0.3 %; Hematocrit 31 % (42-52); Hemoglobin 10.5 g/dL (14.0-18.0); Lymphocyte % 7.6 %; Mean Corpuscular HGB Conc 34 g/dL (31-36); Mean Corpuscular Hemoglobin 33 pg (27-31); Mean Corpuscular Volume 97 fL (80-94); Mean Platelet Volume 8.8 fL (7.4-10.4); Platelet Count 312 10^3/uL (150-450); Red Blood Count 3.22 10^6 /uL (4.18-5.48); Red Cell Distribution Width 15 % (10-15); White Blood Count 10.5 10^3/uL (3.5-10.8)
[2019-05-26 11:29] LABS: Albumin 3.3 g/dL (3.2-5.2); Calcium 9.2 mg/dL (8.6-10.3); Potassium 3.9 mmol/L (3.5-5.0); Total Bilirubin 0.4 mg/dL (0.2-1.0)
[2019-05-26 11:35] LABS: Albumin/Globulin Ratio 0.8 (1-3); BUN/Creatinine Ratio 21.9 (8-20); C Reactive Protein 119.37 mg/L (<8.01); EGFR African American 65.3 (>60); EGFR Non-African American 53.9 (>60); Globulin 4.2 g/dL (2-4); Total Protein 7.5 g/dL (6.4-8.9)
--- NOTE | 2019-05-26 11:53 | DS ---
Amended report to enter cosigning physician. CC: Dr. Caitlyn Lance; Dr. Schmidt; Dr. Sugey Subramanian* DISCHARGE SUMMARY: DATE OF ADMISSION: 05/17/19 DATE OF DISCHARGE: 05/26/19 PRIMARY CARE PROVIDER: Dr. Caitlyn Lance. OUTPATIENT AUTOMAT[employer] GRINDER OPERATOR: Dr. Schmidt. MY ATTENDING WHILE IN THE HOSPITAL: Dr. Sugey Subramanian* (dictated by NOA Mendoza). PRIMARY DISCHARGE DIAGNOSES: 1. Community acquired pneumonia. 2. Acute on chronic weakness, concern for unspecified inflammatory condition. 3. Acute respiratory failure with hypoxia, resolved. 4. Sepsis, resolved. STUDIES DONE WHILE IN THE HOSPITAL: Chest x-ray from 05/17/19 read as elevation of right hemidiaphragm without radiographic evidence of acute cardiopulmonary disease. Chest CT from 05/20/19 read as findings consistent with a right lower lobe pneumonia with consolidation. This is posterior to the dome of liver, no pleural fluid. Pelvis x-ray from 05/21/19 read as normal located right hip as well as sacroiliac joint and pubic symphysis. No evidence for fracture, stress fracture , avascular necrosis, suspicious focal osseous lesions. Preserved hip joint spaces. Mild heterotrophic ossification along the right abductor tendons. Greater trochanter with postsurgical change of anterior and posterior fusion at L5-S1, unremarkable soft tissue contours. MEDICATIONS AT DISCHARGE: 1. Bisoprolol 5 mg p.o. daily. 2. Losartan 50 mg p.o. daily. 3. Metformin 500 mg p.o. b.i.d. 4. Spironolactone 25 mg p.o. daily. 5. Linzess 72 mcg p.o. daily. 6. Omeprazole 20 mg p.o. daily. 7. Aripiprazole 2.5 mg p.o. daily. 8. Cetirizine 10 mg p.o. daily. 9. Hydralazine 10 mg p.o. b.i.d. 10. Furosemide 20 mg p.o. daily. 11. Atorvastatin 10 mg p.o. daily. 12. Selegiline 1 patch transdermal daily. 13. Modafinil 50 mg p.o. daily. 14. Lantus 10 units subcutaneous q. 24 hours. 15. Prednisone 10 mg p.o. b.i.d. New medications at discharge: 1. Lantus. 2. Prednisone. Medications discontinued at discharge: 1. Meloxicam 50 mg p.o. daily. 2. Insulin glargine 20 units subcutaneously daily. HOSPITAL COURSE: This is a brief summary of the patient's presentation. For more details, please see the history and physical from NOA Peralta, on 05/17/19. In brief, the patient is an 83-year-old male with a past medical history significant for the above, who presented to he emergency room due to increased shortness of breath, cough, and weakness to the point he could not get out of bed independently. The patient had been having issues with long- term generalized weakness. The patient had recently moved to [place] from [place]. The patient was admitted to the hospital. The patient was tested for influenza A and B as well as Covid-19; all of which came back negative. The patient initially had no radiographic evidence for pneumonia, but a chest CT showed a right lower lobe pneumonia as above. The patient was started on ceftriaxone and azithromycin. The patient in the end completed 5 days of azithromycin, 5 days of ceftriaxone, 2 days of cefdinir. The patient improved with regards to his breathing. Throughout the hospitalization, his weakness continued to be constant and severe. The patient was seen in consultation by Dr. Derek Schmidt of Rheumatology, who had a suspicion this was related to an unspecified rheumatologic condition. The patient was initially held off on starting steroids; however, when the patient's pneumonia was completely treated and his CRP had not markedly improved and actually worsened from admission as well as his weakness continued to be severe, the patient was started on prednisone 10 mg b.i.d. His blood sugars did not increase significantly with this despite being on a decreased dose of insulin. The patient remained on room air. The patient's blood pressure was under good control. The patient showed no signs of heart failure. The patient was stable and amenable for discharge to home on 05/26/19. The patient was initially recommended to go to rehab, which his family refused and arranged 24-hour home care for him, which has been arranged in addition to hospital bed and we will share on the day of discharge. PHYSICAL EXAM ON THE DAY OF DISCHARGE: General: The patient is an 83-year-old male, who appears stated age and sitting comfortably in bed, in no acute distress. Vital Signs: At the time of evaluation, temperature 97.5, pulse rate 81, respiratory rate 20, oxygen saturation 100% on room air, blood pressure 148/ 87. HEENT: Head normocephalic, atraumatic. Sclerae anicteric. No conjunctival injection. Nasal mucosa moist. Oral mucosa moist. Oral mucosa moist. No pharyngeal erythema, discharge, or exudate. Neck: Supple, nontender. No lymphadenopathy. No carotid bruits auscultated. No JVD. Cardiac: Regular rate and rhythm. No clicks, murmurs, gallops, or rubs. Pulses are 2+ in the bilateral dorsalis pedis, posterior tibialis, and radial areas. Respiratory: Rales heard in the right lower lobe, no other adventitious lung sounds. Good air exchange bilaterally. Abdomen: Soft, nontender, nondistended. Bowel sounds present and normoactive in all 4 quadrants. No hepatosplenomegaly. No abdominal bruits auscultated. No hepatojugular reflux. Genitourinary: No suprapubic or CVA tenderness. Skin: Clean, dry, and intact. No rash. Neuro: Drowsy, no focal deficits. Alert and oriented x3, limited exam. Psychiatric: Pleasant and cooperative. DISCHARGE PLAN BY PROBLEM: 1. Community acquired pneumonia, sepsis, hypoxic respiratory failure, resolved. The patient was treated completely for right lower lobe pneumonia as above and has improved greatly with his respiratory status and is currently saturating excellently on room air with no further signs of shortness of breath , fevers, or productive cough. The patient needs no further intervention for this. 2. Weakness. The patient has concern for an unspecified inflammatory disorder. PMR is on the differential as well as inclusion body myositis. The patient did have a slightly elevated creatine kinase level while in the hospital. The patient should follow up with his primary care provider as well as Dr. Schmidt for tapering of his steroids outpatient as well as monitoring of other lab parameters and his clinical condition. The patient cannot use cane or a walker for ambulation. He is currently requiring 2 assists to transfer from the bed to the chair. He cannot walk any significant distance, but is able to self-propel in a wheelchair. Therefore, a wheelchair has been ordered for him. 3. Diabetes. The patient in the hospital was on a insulin sliding scale and insulin glargine at 10 units daily. Over the last several days of hospitalization, the patient was requiring minimal insulin and had very good blood glucose control particularly for his age. The patient should check his blood sugars 3 times daily and bring these values to his close followup with his primary care provider. The patient will be continued on 10 units of glargine and his metformin as above. 4. Cognitive impairment. Continue the patient's aripoprazole, modafinil, and selegiline. 5. Hypertension. Continue the patient's losartan, hydralazine, furosemide and Zebeta. 6. Heart failure. The patient's EF is unknown. Records should be obtained through Dr. Lance from his prior primary care provider. With regards to this, the patient is already started on Lasix, losartan, and bisoprolol. This should be monitored outpatient. The patient currently appear euvolemic. 7. Chronic kidney disease. This has been at stable throughout the patient's hospitalization. The patient's baseline is unknown. 8. Disposition: Home with aide care. CONDITION: Stable. TIME SPENT: Approximately 60 minutes was spent on the discharge of this patient , 30 of which was spent [id number] with the patient obtaining history and physical and discussing treatment plan. NOA MENDOZA [id number]/CPS #: [id number] MTDD
[2019-05-26] MEDS: Enoxaparin(*) 40 MG/0.4 ML SYR SUBCUT SCH (12:34)
[2019-05-26 17:18] VITALS: BP 126/67
== END 2019-05-26 16:00 | disposition home or self-care (01) | DRG 871 ==
LOC: ED 08:16 → MED 10:58 → OBSVTOIN 05-18 11:00 → MEDTELE 05-19 10:45
PROVIDERS: ADMIT Internal Medicine; ATTEND Internal Medicine
DX: A41.9 Sepsis, unspecified organism (principal); J18.9 Pneumonia, unspecified organism; J96.01 Acute respiratory failure with hypoxia; I13.0 Hypertensive heart and chronic kidney disease with heart failure and stage 1 through stage 4 chronic kidney disease, or unspecified chronic kidney disease; K21.9 Gastro-esophageal reflux disease without esophagitis; G47.33 Obstructive sleep apnea (adult) (pediatric); I50.9 Heart failure, unspecified; F32.9 Major depressive disorder, single episode, unspecified; N18.9 Chronic kidney disease, unspecified; Z96.652 Presence of left artificial knee joint; D53.9 Nutritional anemia, unspecified; Z66 Do not resuscitate; E11.22 Type 2 diabetes mellitus with diabetic chronic kidney disease; M62.81 Muscle weakness (generalized); R79.89 Other specified abnormal findings of blood chemistry; G31.84 Mild cognitive impairment of uncertain or unknown etiology; M25.551 Pain in right hip; D69.6 Thrombocytopenia, unspecified; R53.82 Chronic fatigue, unspecified; Z88.2 Allergy status to sulfonamides; Z88.8 Allergy status to other drugs, medicaments and biological substances; Z85.46 Personal history of malignant neoplasm of prostate; Z79.84 Long term (current) use of oral hypoglycemic drugs; Z92.3 Personal history of irradiation
CPT/HCPCS: 36415; 71045; 71250; 80048; 80053; 81003; 81015; 82085; 82306; 82550; 82607; 83516; 83605; 83880; 84484; 85014; 85025; 85610; 85652; 85730; 86038; 86140; 86200; 86431; 87040; 87086; 87635; 87651; 87899; 93005; 99285; A9270-GY; J0456; J0696; J1650; J7512